=== PATIENT | male | born 1955 | race Caucasian/White ===

== ENCOUNTER 2025-02-25 04:12 | Observation (INO) | payer MEDICARE, SELFPAY ==
[2025-02-25] VITALS (7 sets, daily range): BP systolic 134–159; BP diastolic 50–88; PULSE 69–80; RESP 12–18; TEMP 36–36.7; O2SAT 95–100; BMI 32.2; BMI 32.1
--- NOTE | ~2025-02-25 | CT_ITS ---
CLINICAL HISTORY: Left facial cellulitis? Fluid collection CT maxillofacial with contrast Comparison: None Findings: There is left cheek subcutaneous edema, possible cellulitis. There are no focal masses or collections to suggest developing abscess. No acute fractures. No dislocations. Temporomandibular joints are intact. Paranasal sinuses and mastoid air cells clear. Orbital contents within normal limits. Visualized intracranial contents are within normal limits. No foreign bodies. IMPRESSION: Findings of possible left cheek cellulitis. Clinical follow-up recommended. This document has been electronically signed by: Tristian Duong MD on 02/25/2025 07:19:58
--- NOTE | 2025-02-25 04:52 | ED_ITS ---
HPI - General Adult General Chief complaint: General Medical Stated complaint: swollen face Time Seen by Provider: 02/25/25 04:46 Source: patient Mode of arrival: ambulatory Limitations: no limitations History of Present Illness ED Provider: HPI narrative: Patient' comes here with swelling of the lips left cheek started an hour prior to arrival patient does take SHAILA inhibitor lisinopril denies any difficulty in breathing no prior allergic reaction no dental caries or gum swelling Related Data Home Medications ?Medication ?Instructions ?Recorded ?Confirmed aspirin 81 mg tablet,delayed 81 mg PO DAILY 04/03/23 04/03/23 release Previous Rx's ?Medication ?Instructions ?Recorded acetaminophen 325 mg tablet 975 mg (3 x 325 mg) PO Q8H #10 tabs 04/05/23 amlodipine 2.5 mg tablet 2.5 mg PO DAILY #30 tabs 04/05/23 atorvastatin 20 mg tablet 20 mg PO DAILY #30 tabs 04/05/23 docusate sodium 100 mg capsule 100 mg PO DAILY PRN Constipation 04/05/23 #30 caps losartan 50 mg tablet 50 mg PO DAILY #30 tabs 04/05/23 prednisone 10 mg tablet See Taper PO DIRECTED #26 tabs 04/05/23 Allergies Allergy/AdvReac Type Severity Reaction Status Date / Time No Known Allergies Allergy Verified 02/25/25 04:20 Review of Systems 2 Review of Systems: Yes all other systems are reviewed and are negative [facility] Past Medical History Medical History Toe erythema Left ventricular aneurysm CVA (cerebral vascular accident) Tumor High cholesterol HTN (hypertension) Social History Social History Household Members: Family Housing: Unknown / Unable to assess Do you presently have visiting nurse or other home services: No (unknown) Alcohol intake: current Alcohol intake frequency: holidays/special occasions only Alcohol type: hard liquor Patient Tobacco Use Status: Current someday Tobacco user Tobacco use type: Cigar Smoked in Last 30 Days: No Use of substances other than those prescribed or required for medical reasons: No Advance Directives: No Advance Directives Information Provided: Yes Do you have a plan to hurt others: No Plan service: No Current occupational status: retired Physical Exam ED Vital Signs: Vital Signs - 24 hr 02/25/25 04:16 02/25/25 05:02 Temperature 96.8 F Pulse Rate 74 69 Respiratory Rate 18 18 Blood Pressure 159/88 H 148/69 H Pulse Oximetry 98 Oxygen Delivery Method Room Air BMI result Body Mass Index 32.2 Appearance: Alert. Oriented X3. No acute distress. Eyes: PERRLA, No Nystagmus ENT: Pharynx normal. Oral Mucosa moist swelling of the lower lip and upper lip on the left side with significant swelling of the cheek no gum swelling uvula slightly swollen no stridor Neck: Normal inspection. Neck supple. CVS: Normal heart rate and rhythm. Pulses normal. Respiratory: No respiratory distress. Equal air entry bilateral, no wheezing/rales/rhonchi Abdomen: Soft and nontender. Bowel sounds are present, no mass palpable, no CVA tenderness Skin: Skin warm and dry. Normal skin color. Normal skin turgor. Extremities: No lower extremity edema. No calf tenderness Neuro: Oriented X 3. No motor deficit. No sensory deficit.No cerebellar signs , cranial nerves II-XII intact Medications Administered Discontinued Medications Generic Name Dose Route Start Last Admin Trade Name Freq PRN Reason Stop Dose Admin Diphenhydramine HCl 50 mg 02/25/25 04:48 02/25/25 04:58 Diphenhydramine Hcl 50 Mg/Ml Vial IVPUSH 02/25/25 04:49 50 mg ONCE ONE Administration Iohexol 85 ml 02/25/25 06:47 02/25/25 06:49 Iohexol 350 Mg/Ml 100 Ml Infus..Btl IV 02/25/25 06:48 85 ml ONCE ONE Administration Methylprednisolone Sodium Succinate 125 mg 02/25/25 04:48 02/25/25 04:58 Methylprednisolone Sod Succ 125 Mg/2 Ml Vial IVPUSH 02/25/25 04:49 125 mg ONCE ONE Administration Medical Decision Making Medical Decision Making [facility] Narrative: Patient with angioedema of the face involving the lips and uvula without stridor no difficulty in breathing from SHAILA inhibitor lisinopril CT scan was done to rule out any fluid collection patient is signed out to Dr. Quezada for management/admission Patient has received IV steroid and Benadryl Differential Diagnosis Differential Diagnoses: The differential diagnosis associated with the presentation includes Angioedema/deep facial abscess/fluid collection Lab Data [facility] Lab Attestation statement: I reviewed the patient's lab results. 02/25/25 04:53 02/25/25 04:53 Labs: Lab Results 02/25/25 Range/Units 04:53 WBC 10.2 (4.8-10.8) X10*3/uL RBC 3.88 L (4.60-5.80) X10*6/uL Hgb 9.0 L D (14.0-18.0) g/dl Hct 29.1 L D (42.0-52.0) % MCV 75.0 L (80.0-98.0) fL MCH 23.2 L (27.0-33.0) pg MCHC 30.9 L (31.0-36.0) g/dl RDW 18.3 H (11.0-16.0) % Plt Count 177 D (160-400) X10*3/uL MPV 9.9 (9.4-12.4) fL Immature Gran % (Auto) 0.5 H (0.0-0.4) % Neut % (Auto) 65.5 (45-73) % Lymph % (Auto) 22.0 (20-40) % [place] % (Auto) 7.5 (2-11) % Eos % (Auto) 3.6 (0-4) % Baso % (Auto) 0.9 (0-2) % Lymph # (Auto) 2.3 (1.2-4.9) X10*3/uL [place] # (Auto) 0.8 (0.1-1.2) X10*3/uL Eos # (Auto) 0.4 (0.0-0.4) X10*3/uL Baso # (Auto) 0.1 (0.0-0.2) X10*3/uL Abs Immat Gran (auto) 0.05 H (0.00-0.03) X10*3/uL Absolute Neuts (auto) 6.7 (2.0-8.3) x10*3/uL Absolute Nucleated RBC 0.000 (0.0-0.012) X10*3/uL Nucleated RBC % (auto) 0.0 (0.0-0.2) /100WBC Sodium 136 (135-145) mmol/L Potassium 5.3 H (3.3-5.1) mmol/L Chloride 106 (96-108) mmol/L Carbon Dioxide 19 L (22-29) mmol/L Anion Gap 16 (12-20) BUN 31 H (9-16) mg/dL Creatinine 1.49 H (0.5-1.4) mg/dL Estim Creat Clear Calc 40.0 Estimated GFR 46 Random Glucose 101 (60-115) mg/dL Calcium 9.4 (8.4-10.2) mg/dL Total Bilirubin 0.3 (0.0-1.0) mg/dL AST 71 H (5-37) U/L ALT 25 (0-40) U/L Alkaline Phosphatase 99 (39-117) U/L Total Protein 8.5 H (6.5-8.0) g/dL Albumin 4.2 (3.5-5.0) g/dL Discharge Plan Discharge Clinical Impression: 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) Patient Disposition: Still a Patient Prescriptions: No Action aspirin 81 mg Tablet,Delayed Release (Dr/Ec) 81 mg PO DAILY atorvastatin 20 mg Tablet 20 mg PO DAILY Qty: 30 0RF docusate sodium 100 mg Capsule 100 mg PO DAILY PRN (Reason: Constipation) Qty: 30 0RF losartan 50 mg Tablet 50 mg PO DAILY Qty: 30 0RF Protocol: Hold for SBP< HOLD for SBP < : 90 acetaminophen 325 mg Tablet 975 mg PO Q8H Qty: 10 0RF amlodipine 2.5 mg Tablet 2.5 mg PO DAILY Qty: 30 0RF Protocol: Hold for SBP< HOLD for SBP < : 90 prednisone 10 mg tablet See Taper PO DIRECTED Qty: 26 0RF Taper: Prednisone 40 mg daily for 2 Days and 0 Hour 30 mg daily for 3 Days and 0 Hour 20 mg daily for 3 Days and 0 Hour 10 mg daily for 3 Days and 0 Hour Rx Instructions: see taper instructions Print Language: Maori
[2025-02-25 04:56] LABS: MANUAL DIFF FLAG NO
[2025-02-25 04:57] LABS: Basophils Absolute Auto 0.1 X10*3/uL (0.0-0.2); Basophils Percent Auto 0.9 % (0-2); Eosinophils Absolute Auto 0.4 X10*3/uL (0.0-0.4); Eosinophils Percent Auto 3.6 % (0-4); Hematocrit 29.1 % (42.0-52.0); Imm Gran Abs Auto 0.05 X10*3/uL (0.00-0.03); Imm Gran Pct Auto 0.5 % (0.0-0.4); Lymphocytes Absolute Auto 2.3 X10*3/uL (1.2-4.9); Mean Corpuscular HGB Conc 30.9 g/dl (31.0-36.0); Mean Corpuscular Hemoglobin 23.2 pg (27.0-33.0); Mean Platelet Volume 9.9 fL (9.4-12.4); Monocytes Absolute Auto 0.8 X10*3/uL (0.1-1.2); Monocytes Percent Auto 7.5 % (2-11); Neutrophils Absolute Auto 6.7 x10*3/uL (2.0-8.3); Neutrophils Percent Auto 65.5 % (45-73); Platelet Count 177 X10*3/uL (160-400); Red Blood Count 3.88 X10*6/uL (4.60-5.80); Red Cell Distribution Width 18.3 % (11.0-16.0); White Blood Count 10.2 X10*3/uL (4.8-10.8)
[2025-02-25] MEDS: methylPREDNISolone Sod Succ 125 MG/2 ML VIAL IVPUSH (04:58)
[2025-02-25] MEDS: diphenhydrAMINE HCL 50 MG/ML VIAL IVPUSH (04:58)
[2025-02-25 05:23] LABS: Alanine Aminotransferase 25 U/L (0-40); Albumin Level 4.2 g/dL (3.5-5.0); Alkaline Phosphatase 99 U/L (39-117); Anion Gap 16 (12-20); Aspartate Amino Transferase 71 U/L (5-37); Bilirubin Total 0.3 mg/dL (0.0-1.0); Blood Urea Nitrogen 31 mg/dL (9-16); Calcium 9.4 mg/dL (8.4-10.2); Carbon Dioxide 19 mmol/L (22-29); Chloride 106 mmol/L (96-108); Estimated Glomerular Filt Rate 46; Glucose Random 101 mg/dL (60-115); Potassium 5.3 mmol/L (3.3-5.1); Sodium 136 mmol/L (135-145); Total Protein 8.5 g/dL (6.5-8.0)
[2025-02-25] MEDS: iohexoL 350 MG/ML 100 ML INFUS..BTL 85 ML IV (06:49)
--- NOTE | 2025-02-25 08:00 | P.HPHOSP_ITS ---
History of Present Illness Date of Service: 02/25/25 Chief Complaint: facial swelling 69 year old man with hx of CAD presenting with swelling of lips, left cheek that started 1 hour prior to presenting to the ED. Patient was recently started on Lisinopril 02/16/25 at [facility] [place], he was admitted for near syncope and ortostasis. He denied any sob, nausea, vomting, diarrhea, chest pain. Face CT showing possible left cheek cellulitis however symptoms are more related to angioedema. Patient received steroid and benadryl in the ED. He will be placed on observation overnight. Review of Systems 2 Review of Systems: Denies any recent fever chills or decrease in appetite respiratory denies any shortness of breath or cough cardiovascular denied chest pain gastrointestinal denies any dysphagia abdominal pain nausea vomiting or diarrhea genitourinary denies any dysuria frequency or hematuria musculoskeletal denies any joint pain or swelling neuropsych denies any weakness or seizures all other systems reviewed are negative [facility] Medical History Toe erythema Left ventricular aneurysm CVA (cerebral vascular accident) Tumor High cholesterol HTN (hypertension) Social History Household Members: Family Housing: House Do you presently have visiting nurse or other home services: No Alcohol intake: current Alcohol intake frequency: holidays/special occasions only Alcohol type: hard liquor Patient Tobacco Use Status: Current someday Tobacco user Tobacco use type: Cigarette Smoked in Last 30 Days: No Use of substances other than those prescribed or required for medical reasons: No Currently Displaying Signs/Symptoms of Drug Intoxication Withdrawal: No Have you been hit, kicked, punched, or otherwise hurt by someone within the past year? If so, by whom?: No Do you feel safe in your current relationship?: No Current Relationship Is there a partner from a previous relationship who is making you feel unsafe now?: No Are you made to feel afraid or neglected: No Advance Directives: No Advance Directives Information Provided: Yes Do you have a plan to hurt others: No Plan Recently lost weight without trying: No How much weight loss: Not applicable Eating poorly because of decreased appetite: No Nutrition screen score: 0 Nutrition Risks: No Nutritional Risk Poor oral hygiene: No service: No Current occupational status: retired [employer] Allergies Allergy/AdvReac Type Severity Reaction Status Date / Time lisinopril Allergy Severe Angioedema Verified 02/25/25 12:07 Active Medications: Current Medications Acetaminophen (Acetaminophen 325 Mg Tablet) 650 mg PO Q6H PRN PRN Reason: Pain, Mild 1-3,fever,headache Calcium Carbonate (Calcium Carbonate 750 Mg Tab.Chew) 750 mg PO Q4H PRN PRN Reason: Heartburn Magnesium Hydroxide (Milk Of Magnesia 30 Ml Oral.Susp) 30 ml PO DAILY PRN PRN Reason: Constipation Melatonin (Melatonin 3 Mg Tablet) 6 mg PO BEDTIME PRN PRN Reason: Insomnia Sodium Chloride (0.9 % Sodium Chloride Flush 3 Ml Syringe) [facility] Medications ?Medication ?Instructions ?Recorded ?Confirmed ?Last Taken ?Type acetaminophen 650 mg 650 mg PO Q8H PRN Pain 02/25/25 02/25/25 Unknown History tablet,extended release amlodipine 5 mg tablet 5 mg PO DAILY 02/25/25 02/25/25 02/24/25 History atorvastatin 80 mg tablet 80 mg PO BEDTIME 02/25/25 02/25/25 02/24/25 History ferrous sulfate 325 mg (65 mg 325 mg PO Q OTHER DAY 02/25/25 02/25/25 02/23/25 History iron) tablet,delayed release lisinopril 20 mg tablet 20 mg PO DAILY 02/25/25 02/25/25 02/24/25 History metoprolol succinate 25 mg 25 mg PO DAILY 02/25/25 02/25/25 02/24/25 History tablet,extended release 24 hr spironolactone 25 mg tablet 25 mg PO DAILY 02/25/25 02/25/25 02/24/25 History Physical Exam 2 Vital Signs and Narrative: Vital Signs: Last Vital Signs Temp 96.8 F 02/25/25 04:16 Pulse 69 02/25/25 05:02 Resp 18 02/25/25 05:02 BP 148/69 H 02/25/25 05:02 Pulse Ox 98 02/25/25 05:02 O2 Del Method Room Air 02/25/25 05:02 BMI result Body Mass Index 32.2 Appearing in no acute distress head is normocephalic atraumatic eyes pupils are PERRLA sclera is anicteric mouth throat mucous membranes are intact and moist neck is supple no lymphadenopathy, no JVD noted lung sounds are clear to auscultation heart regular rate rhythm, clear S1, S2 positive bowel sounds, abdomen is soft, nontender neuro patient is alert x3, no focal deficits Results Labs 02/25/25 04:53 02/25/25 04:53 Labs: Laboratory Results - last 24 hr 02/25/25 04:53 MCV 75.0 L MCH 23.2 L MCHC 30.9 L RDW 18.3 H Plt Count 177 D MPV 9.9 Immature Gran % (Auto) 0.5 H Neut % (Auto) 65.5 Lymph % (Auto) 22.0 [place] % (Auto) 7.5 Eos % (Auto) 3.6 Baso % (Auto) 0.9 Lymph # (Auto) 2.3 [place] # (Auto) 0.8 Eos # (Auto) 0.4 Baso # (Auto) 0.1 Abs Immat Gran (auto) 0.05 H Absolute Neuts (auto) 6.7 Absolute Nucleated RBC 0.000 Nucleated RBC % (auto) 0.0 Anion Gap 16 Estim Creat Clear Calc 40.0 Estimated GFR 46 Random Glucose 101 Calcium 9.4 Total Bilirubin 0.3 AST 71 H ALT 25 Alkaline Phosphatase 99 Total Protein 8.5 H Albumin 4.2 Assessment and Plan (1) 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 (ROD- I): Status: Acute Plan 69 year old man admitted with angioedema to face likely secondary to Rod inhibitor Angioedema Secondary to Lisinopril Given steroid and benadryl in ED no respiratory compromise lisinopril stopped monitor overnight HTN continue amlodipine , spirololactone, CAD continue BB, statin Microcytic anemia HH low but no acute bleeding continue iron Check Iron studies DVT prophylaxis with SCD, early ambulation Full code Quality Stroke Does the patient have a stroke diagnosis?: No VTE Prior VTE?: No VTE Risk Level:: Medical - moderate - high VTE Device Contraindication: N/A - Device Ordered VTE Drug Contraindication: Treatment Not Indicated
--- NOTE | 2025-02-25 08:00 | PM.DS ---
DS: Providers Provider Date of Service: 02/25/25 Date of discharge: 02/25/25 Primary care physician: Unknown Physician Physical Exam Vital Signs: Vital Signs: Last Vital Signs Temp 96.8 F 02/25/25 04:16 Pulse 69 02/25/25 05:02 Resp 18 02/25/25 05:02 BP 148/69 H 02/25/25 05:02 Pulse Ox 98 02/25/25 05:02 O2 Del Method Room Air 02/25/25 05:02 BMI result Body Mass Index 32.2 DS: Data Data Completed and Pending Labs on day of discharge: Laboratory Results - last 24 hr 02/25/25 04:53 WBC 10.2 RBC 3.88 L Hgb 9.0 L D Hct 29.1 L D MCV 75.0 L MCH 23.2 L MCHC 30.9 L RDW 18.3 H Plt Count 177 D MPV 9.9 Immature Gran % (Auto) 0.5 H Neut % (Auto) 65.5 Lymph % (Auto) 22.0 [place] % (Auto) 7.5 Eos % (Auto) 3.6 Baso % (Auto) 0.9 Lymph # (Auto) 2.3 [place] # (Auto) 0.8 Eos # (Auto) 0.4 Baso # (Auto) 0.1 Abs Immat Gran (auto) 0.05 H Absolute Neuts (auto) 6.7 Absolute Nucleated RBC 0.000 Nucleated RBC % (auto) 0.0 Sodium 136 Potassium 5.3 H Chloride 106 Carbon Dioxide 19 L Anion Gap 16 BUN 31 H Creatinine 1.49 H Estim Creat Clear Calc 40.0 Estimated GFR 46 Random Glucose 101 Calcium 9.4 Total Bilirubin 0.3 AST 71 H ALT 25 Alkaline Phosphatase 99 Total Protein 8.5 H Albumin 4.2 Discharge Plan Discharge Clinical Impression: 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
--- NOTE | 2025-02-25 08:35 | PHA.MEDREC ---
Addendum entered by Bettie Flood RPh 02/25/25 09:48: MED REC REVIEWED BY [facility] Original Note: Pharmacy Consult ? Medication Reconciliation Pharmacy has completed the medication reconciliation. Spoke with patient to confirm. He brought in his rx bottles. He is supposed to take ferrous sulfate today. He is not taking baby aspirin but says he is supposed to .
[2025-02-25 12:43] LABS: Iron 89 mcg/dL (45-160); Percent Iron Saturation 19 % (15-50); Total Iron Binding Capacity 467 mcg/dL (228-428); Unsaturated Iron Binding 378 ug/dL
[2025-02-25] MEDS: 0.9 % Sodium Chloride Flush 3 ML SYRINGE IVFLUSH (19:00)
[2025-02-25] MEDS: Melatonin 3 MG TABLET 6 MG PO (20:00)
[2025-02-26] MEDS: 0.9 % Sodium Chloride Flush 3 ML SYRINGE IVFLUSH (03:27)
[2025-02-26 03:35] VITALS: BP 134/60; PULSE 67; RESP 17; TEMP 36.4; O2SAT 98
[2025-02-26 07:21] VITALS: BP 163/75; PULSE 69; RESP 18; TEMP 36.8; O2SAT 99
[2025-02-26 07:33] LABS: MANUAL DIFF FLAG NO
[2025-02-26 07:45] LABS: Basophils Percent Auto 0.2 % (0-2); Eosinophils Percent Auto 0.2 % (0-4); Hematocrit 27.4 % (42.0-52.0); Hemoglobin 8.6 g/dl (14.0-18.0); Imm Gran Abs Auto 0.07 X10*3/uL (0.00-0.03); Imm Gran Pct Auto 0.7 % (0.0-0.4); Lymphocytes Absolute Auto 1.2 X10*3/uL (1.2-4.9); Lymphocytes Percent Auto 11.2 % (20-40); Mean Corpuscular HGB Conc 31.4 g/dl (31.0-36.0); Mean Corpuscular Hemoglobin 23.4 pg (27.0-33.0); Mean Corpuscular Volume 74.7 fL (80.0-98.0); Mean Platelet Volume 9.9 fL (9.4-12.4); Monocytes Absolute Auto 0.7 X10*3/uL (0.1-1.2); Monocytes Percent Auto 6.9 % (2-11); Neutrophils Absolute Auto 8.5 x10*3/uL (2.0-8.3); Neutrophils Percent Auto 80.8 % (45-73); Platelet Count 294 X10*3/uL (160-400); Red Blood Count 3.67 X10*6/uL (4.60-5.80); Red Cell Distribution Width 18.3 % (11.0-16.0); White Blood Count 10.6 X10*3/uL (4.8-10.8)
[2025-02-26 07:57] LABS: Alanine Aminotransferase 18 U/L (0-40); Albumin Level 4.2 g/dL (3.5-5.0); Alkaline Phosphatase 91 U/L (39-117); Anion Gap 12 (12-20); Aspartate Amino Transferase 20 U/L (5-37); Bilirubin Total 0.4 mg/dL (0.0-1.0); Blood Urea Nitrogen 27 mg/dL (9-16); Calcium 9.3 mg/dL (8.4-10.2); Carbon Dioxide 21 mmol/L (22-29); Chloride 108 mmol/L (96-108); Creatinine Clr Calc Pharmacy 55.2; Estimated Glomerular Filt Rate > 60; Glucose Random 101 mg/dL (60-115); Potassium 4.3 mmol/L (3.3-5.1); Sodium 137 mmol/L (135-145); Total Protein 7.6 g/dL (6.5-8.0)
--- NOTE | 2025-02-26 08:19 | PM.DS ---
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 Patient was recently started on [place]op[place]/16/25 [place] [facility] [place] he was admitted for near syncope and ortostasis. He denied any sob, nausea, vomting, diarrhea, chest pain. Face CT showing possible left cheek cellulitis however symptoms are more related to angioedema. Patient received steroid and benadryl in the ED. He will be placed on observation overnight. 69-year-old man treated for SHAILA induced angioedema secondary to lisinopril. Given steroids and Benadryl in the ED, no respiratory compromise, lisinopril stopped the patient should not take SHAILA inhibitor medications specifically lisinopril. Swelling has dramatically decreased and we will continue to. Hypertension. Continue amlodipine and spironolactone Coronary artery disease. Continue beta-frandy and statin Microcytic anemia. Iron 89/TIBC 467. Continue iron supplementation Time Attestation Discharge Coordination Time (in mins): 40 Quality: Safe Use of Opioids Does Pt have an Active Cancer Diagnosis on the Problem List?: No Quality: Stroke Does the patient have a stroke diagnosis?: No Physical Exam Vital Signs: Vital Signs: Last Vital Signs Temp 98.3 F 02/26/25 07:21 Pulse 69 02/26/25 07:21 Resp 18 02/26/25 07:21 BP 163/75 H 02/26/25 07:21 Pulse Ox 99 02/26/25 07:21 O2 Del Method Room Air 02/26/25 07:21 BMI result Body Mass Index 32.1 Appearing in no acute distress head is normocephalic atraumatic eyes pupils are PERRLA sclera is anicteric mouth throat mucous membranes are intact and moist neck is supple no lymphadenopathy, no JVD noted lung sounds are clear to auscultation heart regular rate rhythm, clear S1, S2 positive bowel sounds, abdomen is soft, nontender neuro patient is alert x3, no focal deficits Mild facial swelling to right side of face DS: Data Data Completed and Pending Labs on day of discharge: Laboratory Results - last 24 hr 02/25/25 02/25/25 02/26/25 04:53 08:37 06:02 WBC 10.6 RBC 3.67 L Hgb 8.6 L Hct 27.4 L MCV 74.7 L MCH 23.4 L MCHC 31.4 RDW 18.3 H Plt Count 294 D MPV 9.9 Immature Gran % (Auto) 0.7 H Neut % (Auto) 80.8 H Lymph % (Auto) 11.2 L [place] % (Auto) 6.9 Eos % (Auto) 0.2 Baso % (Auto) 0.2 Lymph # (Auto) 1.2 [place] # (Auto) 0.7 Eos # (Auto) 0.0 Baso # (Auto) 0.0 Abs Immat Gran (auto) 0.07 H Absolute Neuts (auto) 8.5 H Absolute Nucleated RBC 0.000 Nucleated RBC % (auto) 0.0 Sodium 137 Potassium 4.3 Chloride 108 Carbon Dioxide 21 L Anion Gap 12 BUN 27 H Creatinine 1.08 Estim Creat Clear Calc 55.2 Estimated GFR > 60 Random Glucose 101 Calcium 9.3 Iron 89 TIBC 467 H % Saturation 19 Unsat Iron Binding 378 Total Bilirubin 0.4 AST 20 ALT 18 Alkaline Phosphatase 91 Total Protein 7.6 Albumin 4.2 Blood Type A Negative Antibody Screen NEGATIVE Discharge Plan Discharge Anticipated Discharge Date/Time: 02/26/25 08:17 Patient Disposition: Home, Self-Care Discharge Diagnosis: SHAILA induced angioedema Discharge Medications: Continued atorvastatin 80 mg tablet 80 mg PO BEDTIME spironolactone 25 mg tablet 25 mg PO DAILY metoprolol succinate 25 mg tablet extended release 24 hr 25 mg PO DAILY ferrous sulfate 325 mg (65 mg iron) tablet,delayed release (DR/EC) 325 mg PO Q OTHER DAY acetaminophen 650 mg Tablet Extended Release 650 mg PO Q8H PRN (Reason: Pain) amlodipine 5 mg tablet 5 mg PO DAILY Qty: 30 0RF Discontinued lisinopril 20 mg tablet 20 mg PO DAILY Discharge Orders: Discharge Order (Routine); Ordered 02/26/25 Ordered By: Terri Choi Diet: Advance to usual diet Activity on Discharge: As tolerated Stand Alone Forms: Patient Portal Discharge page Print Language: [place] Care Plan Goals: Do not take SHAILA inhibitor medications specifically lisinopril Swallowing we will continue to decrease however if you notice worsening swelling or tightness in the throat, return to the ER immediately Health Concerns: SHAILA induced angioedema Plan of Treatment: Follow-up with primary care provider as needed Take all medications as prescribed Assessment: See discharge summary
--- NOTE | 2025-02-26 08:40 | MHC.CM.PN ---
Pt. has been medically cleared for DC, he will call a family member to pick him up, plan is: home, self care. He has a new PCP, appt later this month at [facility], a practice, he does not know name of MD.
== END 2025-02-26 09:00 | disposition home or self-care (01) ==
LOC: HO.ED 07:40 → HO.IMC 10:26 → HO.EDOVER 02-28 08:28
PROVIDERS: Admitting Provider Nurse Practitioner Acute Care; Emergency Provider Internal Medicine; Visit Provider Nurse Practitioner Acute Care
DX: R55 Syncope and collapse (principal); T46.4X5A Adverse effect of angiotensin-converting-enzyme inhibitors, initial encounter; Y84.8 Other medical procedures as the cause of abnormal reaction of the patient, or of later complication, without mention of misadventure at the time of the procedure; Y92.9 Unspecified place or not applicable; I10 Essential (primary) hypertension; R22.0 Localized swelling, mass and lump, head; I25.10 Atherosclerotic heart disease of native coronary artery without angina pectoris; D50.9 Iron deficiency anemia, unspecified; Z86.73 Personal history of transient ischemic attack (TIA), and cerebral infarction without residual deficits
CPT/HCPCS: 36415; 70487; 80053; 83540; 85025; 86850; 86900; 86901; 96374; 96375; 99222; 99285; J1200; J2919; Q9967

== ENCOUNTER → 2025-02-25 06:33 | Outpatient (BNV) | payer MEDICARE, SELFPAY | PROVIDERS: Emergency Provider Internal Medicine; Visit Provider Specialist | DX: L03.211 Cellulitis of face (principal) | CPT/HCPCS: 70487 ==

== ENCOUNTER → 2025-02-25 08:14 | Outpatient (BNV) | payer MEDICARE, SELFPAY | PROVIDERS: Admitting Provider Nurse Practitioner Acute Care; Emergency Provider Internal Medicine; Visit Provider Nurse Practitioner Acute Care | DX: T78.3XXA Angioneurotic edema, initial encounter (principal); T46.4X5A Adverse effect of angiotensin-converting-enzyme inhibitors, initial encounter | CPT/HCPCS: 99223 ==

== ENCOUNTER 2025-07-02 19:34 | Inpatient (IN) | payer MEDICARE, SELFPAY ==
--- NOTE | 2025-07-02 | ECG_ITS ---
Test Reason : DIZZINESS Blood Pressure : */* mmHG Vent. Rate : 59 BPM Atrial Rate : 59 BPM P-R Int : 184 ms QRS Dur : 124 ms QT Int : 442 ms P-R-T Axes : 35 25 38 degrees QTcB Int : 437 ms Sinus bradycardia Possible Inferior infarct (cited on or before 17-Feb-2012) Abnormal ECG When compared with ECG of 17-Oct-2016 03:32, Nonspecific T wave abnormality, improved in Inferior leads T wave inversion no longer evident in Anterolateral leads Referred By: Generic ED Physician Electronically Signed By: VIKY DICKEY MD
--- NOTE | ~2025-07-02 | XR_ITS ---
EXAMINATION: XR CHEST 1 VIEW HISTORY: SOB at rest COMPARISON: Comparison is made with the prior examination dated 09/22/2020. FINDINGS: A single AP portable view of the chest performed at 11:34 PM is submitted. A left sided unipolar pacemaker is unchanged in position. The lungs are expanded and clear. There is no pleural effusion, pneumothorax, or pulmonary vascular congestion. The heart remains enlarged. The patient is status post median sternotomy. The bones are intact. XR/XR chest 1V IMPRESSION: Cardiomegaly. No acute cardiopulmonary abnormality. Electronically signed by: Anton Garcia MD 07/03/2025 06:57 AM EDT
--- NOTE | ~2025-07-02 | CT_ITS ---
EXAMINATION: CT ABDOMEN AND PELVIS WITH CONTRAST CLINICAL INFORMATION: Acute anemia. COMPARISON: None available. TECHNIQUE: Multidetector volumetric images were obtained from the superior aspect of the liver through the pubic symphysis following administration 85 mL of Omnipaque 350 intravenous contrast. Sagittal and coronal reformatted images were obtained on the technologist's workstation. Oral contrast: No. DLP: [address] examination was performed using dose optimization techniques as appropriate, variously including the following: *Automated exposure control *Adjustment of mA and/or kV according to patient size (this includes techniques or standardized protocols for targeted exams where dose is matched to indication/reason for exam; i.e. extremities or head) *Use of iterative reconstruction technique FINDINGS: LUNG BASES: There is bibasilar dependent atelectasis. Heart size is normal. Solitary pacer electrode in right ventricle. There are median sternotomy sutures from previous intervention no pleural or pericardial effusion seen. Suspect small hiatal hernia. In between the pericardium and the diaphragm is a hyperdense area measuring 199 Hounsfield units. Exact etiology is not known. LIVER, GALLBLADDER, AND BILIARY TREE: The liver is normal in size, shape, and attenuation. No focal hepatic lesion or biliary ductal dilatation is present. The gallbladder is unremarkable with no evidence of radiopaque gallstones, gallbladder wall thickening, or obvious pericholecystic inflammatory changes. PANCREAS: Unremarkable. SPLEEN: Unremarkable. ADRENAL GLANDS: Unremarkable. KIDNEYS AND URETERS: The kidneys are normal in size, shape, and attenuation. No hydronephrosis, hydroureter, or calculi seen. There is focal perinephric stranding posterior upper pole right kidney. BLADDER: There is mild anterior bladder wall thickening but no radiopaque calculi visualized. GASTROINTESTINAL TRACT: There is scattered stool and gas in the colon without distention. The small bowel loops are normal caliber. Appendix is normal caliber. The stomach is nondistended. ABDOMINAL WALL: Prominent right inguinal canal containing mesenteric fat is noted. There is a lipoma of left tensor fascia edgar muscle with LYMPH NODES: Normal. VASCULAR: Mild atherosclerotic changes of entire abdominal aorta is noted without aneurysm. PELVIC VISCERA: The prostate gland is mildly enlarged with central gland calcification mild extension into the basal bladder. OSSEOUS STRUCTURES: Moderate to advanced degeneration with subchondral cystic changes seen involving the right humeral head in the right acetabulum. CT/CT abdomen pelvis w IV con IMPRESSION: No acute intracranial process. There is hyperdense lesion in between the diaphragm and basal pericardium. Question calcified pericardial cyst, less likely exophytic gastroesophageal diverticulum. Likely small hiatal hernia. Mild prostate enlargement. Fleischner guidelines were followed. Electronically signed by: Aki Strickland MD 07/03/2025 07:25 AM EDT RP
[2025-07-02 19:42] VITALS: BP 154/88; PULSE 86; O2SAT 100
[2025-07-02 19:47] VITALS: BP 147/45; PULSE 66; RESP 16; TEMP 36.7; O2SAT 97; BMI 27.6
[2025-07-02 20:00] VITALS: BP 147/45; PULSE 63; RESP 16; TEMP 36.7; O2SAT 98
[2025-07-02 20:25] LABS: Imm Gran Abs Auto 0.02 X10*3/uL (0.00-0.03); Imm Gran Pct Auto 0.3 % (0.0-0.4); Lymphocytes Absolute Auto 1.4 X10*3/uL (1.2-4.9); MANUAL DIFF FLAG NO; Mean Corpuscular HGB Conc 27.0 g/dl (31.0-36.0); Mean Corpuscular Hemoglobin 16.0 pg (27.0-33.0); NRBC Abs Auto 0.000 X10*3/uL (0.0-0.012); NRBC Pct Auto 0.0 /100WBC (0.0-0.2); Platelet Count 221 X10*3/uL (160-400); Red Blood Count 3.00 X10*6/uL (4.60-5.80); White Blood Count 6.1 X10*3/uL (4.8-10.8)
--- NOTE | 2025-07-02 20:25 | PC.NURSE ---
at this time provider Dhruv Angelo at the bedside speaking w/ the pt, pt now adherent to receiving CT scan
[2025-07-02 20:28] LABS: Mean Corpuscular Volume 59.3 fL (80.0-98.0)
[2025-07-02 20:31] LABS: Hematocrit 17.8 % (42.0-52.0); Hemoglobin 4.8 g/dl (14.0-18.0)
[2025-07-02 20:39] LABS: Alanine Aminotransferase 8 U/L (0-40); Albumin Level 4.0 g/dL (3.5-5.0); Alkaline Phosphatase 73 U/L (39-117); Anion Gap 14 (12-20); Aspartate Amino Transferase 22 U/L (5-37); Blood Urea Nitrogen 18 mg/dL (9-16); Calcium 8.3 mg/dL (8.4-10.2); Carbon Dioxide 25 mmol/L (22-29); Chloride 107 mmol/L (96-108); Creatinine Clr Calc Pharmacy 56.0; Estimated Glomerular Filt Rate > 60; Magnesium 2.0 mg/dL (1.6-2.6); Potassium 3.9 mmol/L (3.3-5.1); Sodium 142 mmol/L (135-145); Total Protein 6.7 g/dL (6.5-8.0)
[2025-07-02 20:43] LABS: INTERNATIONAL NORM RATIO 1.0 (0.9-1.1); Prothrombin Time 10.9 SEC (10.9-12.4)
[2025-07-02 20:46] LABS: Troponin-I High Sensitivity 19.6 ng/L (<3.5-35.0)
--- NOTE | 2025-07-02 21:07 | ED.GENADULT ---
HPI - General Adult General Chief complaint: Dizziness Stated complaint: dizzy, hip pain, unable to ambulate Time Seen by Provider: 07/02/25 20:30 Source: patient and EMS Mode of arrival: EMS Limitations: no limitations History of Present Illness ED Provider: Clemente KHAN HPI narrative: The patient is a 70-year-old male with a history of CAD, AICD, hypertension, hyperlipidemia, and CHF presenting to the ED for evaluation of 2-3 months of worsening dizziness, with associated bilateral lower extremity weakness and right hip pain. Patient reports he was told approximately 10 years ago that he needed a right hip replacement but did not follow through with the surgery. The patient reports he has been contributing both his hip pain and weakness symptoms to his arthritic hip. The patient reports today however his weakness became markedly more severe, he was unable to get up from a chair without feeling short of breath and dizzy, patient has been unable to walk greater than 25-30 feet without needing to sit down and rest. The patient denies associated fever/chills, nausea, vomiting, chest pain, shortness of breath, abdominal pain, recent sick contacts, recent fall or other trauma, headache, or focal neurological deficit. The patient reports he is anticoagulated secondary to his previous open heart surgery however chart review does not show any active anticoagulation prescriptions. The patient denies any sources of bleeding. Related Data Home Medications ?Medication ?Instructions ?Recorded ?Confirmed acetaminophen 650 mg 650 mg PO Q8H PRN Pain 02/25/25 02/25/25 tablet,extended release atorvastatin 80 mg tablet 80 mg PO BEDTIME 02/25/25 02/25/25 ferrous sulfate 325 mg (65 mg 325 mg PO Q OTHER DAY 02/25/25 02/25/25 iron) tablet,delayed release metoprolol succinate 25 mg 25 mg PO DAILY 02/25/25 02/25/25 tablet,extended release 24 hr spironolactone 25 mg tablet 25 mg PO DAILY 02/25/25 02/25/25 Previous Rx's ?Medication ?Instructions ?Recorded amlodipine 5 mg tablet 5 mg PO DAILY #30 tabs 02/26/25 Allergies Allergy/AdvReac Type Severity Reaction Status Date / Time lisinopril Allergy Severe Angioedema Verified 07/02/25 19:53 Review of Systems Review of Systems: Yes all other systems are reviewed and are negative [facility] Past Medical History Medical History Toe erythema Left ventricular aneurysm CVA (cerebral vascular accident) Tumor High cholesterol HTN (hypertension) Social History Social History Household Members: Family Housing: House Do you presently have visiting nurse or other home services: No Alcohol intake: current Alcohol intake frequency: 3 or more drinks per day Alcohol type: hard liquor Patient Tobacco Use Status: Current someday Tobacco user Tobacco use type: Cigarette Smoked in Last 30 Days: Yes Use of substances other than those prescribed or required for medical reasons: No Advance Directives: No Advance Directives Information Provided: No service: No Current occupational status: retired Physical Exam ED Vital Signs: Vital Signs - 24 hr 07/02/25 19:47 07/02/25 20:00 07/02/25 22:00 Temperature 98.1 F 98.1 F Pulse Rate 66 63 69 Respiratory Rate 16 16 16 Blood Pressure 147/45 H 147/45 H 165/66 H Pulse Oximetry 97 98 98 Oxygen Delivery Method Room Air Room Air Room Air 07/02/25 22:28 Temperature 98.0 F Pulse Rate 65 Respiratory Rate 16 Blood Pressure 149/68 H Pulse Oximetry Oxygen Delivery Method BMI result Body Mass Index 27.6 CONSTITUTIONAL: The patient appears non-toxic, well nourished and in no acute distress. Vital signs as documented. HEAD: Atraumatic, normocephalic. EYES: EOMs grossly intact, pupils equal, conjunctiva clear, no exudate. ENT: Nares patent, no discharge. Airway patent, no audible stridor, visible mucosa is pink and moist without noted lesions. NECK: Trachea is midline, no obvious masses or gross abnormalities. CHEST: Symmetric movement, AICD in place, otherwise normal appearance. LUNGS: LS present and CTAB, no w/r/r. Non-labored work of breathing. CARDIAC: Regular Rhythm, S1/S2 appreciated, no murmurs, rubs or gallops. ABDOMEN: Abdomen soft and non-tender x4 quadrants, no palpable masses or organomegaly. : Deferred. EXTREMITIES: Normal tone, moves all extremities spontaneously without reported pain. No obvious acute injury or deformity noted. NEURO: Alert and oriented x3, CN II-XII appear grossly intact. Cerebellar Functioning grossly intact. No obvious sensory or motor deficits. Speech clear and appropriate. PSYCH: normal affect, appropriate eye contact, fluid speech, with appropriate response to questioning. No reported suicidality or homicidality. SKIN: Warm, dry, color appropriate, normal turgor. No rashes noted. Medications Administered Discontinued Medications Generic Name Dose Route Start Last Admin Trade Name Srinathq PRN Reason Stop Dose Admin Sodium Chloride 1,000 mls @ 999 mls/hr 07/02/25 20:45 07/02/25 21:59 Ns IV 07/02/25 21:45 Infused .Q1H1M EMILIE Infusion Medical Decision Making Medical Decision Making [facility] Narrative: 9:21 PM 07/02/2025 (Dhruv KHAN): The patient is a 70-year-old male presenting to the ED reporting severe fatigue, dizziness upon standing, and exertional dyspnea/weakness which has been occurring over the past 2-3 months but is increased today to the point he can not stand without feeling severely dizzy. The patient denies other associated symptoms. Patient's exam is unremarkable, abdomen is benign, nontender. Patient's laboratory evaluation however shows evidence of severe anemia with H and H of 4.8 and 17.8. The patient denies any sources of bleeding, denies hematochezia, melena, hematemesis, bleeding gums, or easy bruising. CARON shows no gross blood, occult stool is negative for blood. The remainder of the patient's laboratory evaluation is reassuring, no leukocytosis, electrolyte abnormality, or ALYSON. Patient's troponin is negative. EKG is nonischemic. The source of the patient's microcytic anemia is not entirely clear, we will add on folate, iron studies, and initiate transfusion of 2 units PRBCs. Due to severity of anemia patient will require admission for serial H&H and additional transfusions. Admission/Observation Consideration of admission/observation: Escalation of care including admission/observation considered Lab Data [facility] Lab Attestation statement: I reviewed the patient's lab results. 07/02/25 20:19 07/02/25 20:19 Labs: Lab Results 07/02/25 07/02/25 07/02/25 Range/Units 20:19 21:08 21:14 WBC 6.1 (4.8-10.8) X10*3/uL RBC 3.00 L (4.60-5.80) X10*6/uL Hgb 4.8 L* D (14.0-18.0) g/dl Hct 17.8 L* D (42.0-52.0) % MCV 59.3 L (80.0-98.0) fL MCH 16.0 L (27.0-33.0) pg MCHC 27.0 L (31.0-36.0) g/dl RDW 24.4 H (11.0-16.0) % Plt Count 221 (160-400) X10*3/uL MPV 8.9 L (9.4-12.4) fL Immature Gran % (Auto) 0.3 (0.0-0.4) % Neut % (Auto) 67.3 (45-73) % Lymph % (Auto) 22.7 (20-40) % Towns % (Auto) 6.6 (2-11) % Eos % (Auto) 2.1 (0-4) % Baso % (Auto) 1.0 (0-2) % Lymph # (Auto) 1.4 (1.2-4.9) X10*3/uL [place] # (Auto) 0.4 (0.1-1.2) X10*3/uL Eos # (Auto) 0.1 (0.0-0.4) X10*3/uL Baso # (Auto) 0.1 (0.0-0.2) X10*3/uL Abs Immat Gran (auto) 0.02 (0.00-0.03) X10*3/uL Absolute Neuts (auto) 4.1 (2.0-8.3) x10*3/uL Absolute Nucleated RBC 0.000 (0.0-0.012) X10*3/uL Nucleated RBC % (auto) 0.0 (0.0-0.2) /100WBC PT 10.9 (10.9-12.4) SEC INR 1.0 (0.9-1.1) Sodium 142 (135-145) mmol/L Potassium 3.9 (3.3-5.1) mmol/L Chloride 107 (96-108) mmol/L Carbon Dioxide 25 (22-29) mmol/L Anion Gap 14 (12-20) BUN 18 H (9-16) mg/dL Creatinine 1.09 (0.5-1.4) mg/dL Estim Creat Clear Calc 56.0 Estimated GFR > 60 Random Glucose 92 (60-115) mg/dL Calcium 8.3 L D (8.4-10.2) mg/dL Magnesium 2.0 (1.6-2.6) mg/dL Total Bilirubin 0.3 (0.0-1.0) mg/dL AST 22 (5-37) U/L ALT 8 (0-40) U/L Alkaline Phosphatase 73 (39-117) U/L Troponin I High Sens 19.6 (<3.5-35.0) ng/L Total Protein 6.7 (6.5-8.0) g/dL Albumin 4.0 (3.5-5.0) g/dL Stool Occult Blood NEGATIVE (NEGATIVE) Blood Type A Negative Antibody Screen NEGATIVE Crossmatch See Detail Independent Interpretation I performed an independent interpretation of an: EKG (EKG shows sinus bradycardia with no evidence of acute ischemia, no ST elevation, no ectopy. QTC 437. Compared to previous in 2016 T-wave inversions are no longer present in the anterolateral leads. ) Discharge Plan Discharge Clinical Impression: Anemia Qualifiers: Anemia type: unspecified type Qualified Code(s): D64.9 - Anemia, unspecified Patient Disposition: Admitted As Inpatient Print Language: Azeri
[2025-07-02 21:20] LABS: OBS Int Ctl Valid YES; OBS1 NEGATIVE (NEGATIVE)
[2025-07-02 22:00] VITALS: BP 165/66; PULSE 69; RESP 16; O2SAT 98
[2025-07-02 22:28] VITALS: BP 149/68; PULSE 65; RESP 16; TEMP 36.7
--- NOTE | 2025-07-02 22:31 | PC.NURSE ---
this RN began blood transfusion at this time
[2025-07-02 22:46] VITALS: BP 151/66; PULSE 61; RESP 18; TEMP 36.9
--- NOTE | 2025-07-02 22:46 | PC.NURSE ---
at this time blood transfused over 15 min, pt VSS, pt denies any chest pain/SOB/back pain
--- NOTE | 2025-07-02 22:59 | PM.IMHP ---
History of Present Illness Date of Service: 07/02/25 Attending physician on admission: Mitch Palencia Chief Complaint: weakness Pt is a 70 yo male with PMH CAD, HTN, HLD, alcohol use disorder, tobacco dependence, CVA (2019), aortic aneurysmal repair 2014 no dissection, HFrEF 45-50 % [address] (pt denies hx of cardiac arrest, [place]), mitral valve regurgitation, gout with no recent flares presents to ED with complaint of worsening dizziness and weakness, especially with ambulation to his mailbox over the last 6-7 months. Pt has not had any falls or injury. Pt currently lives with his [id number], drives and is retired. Due to the cost of copays, pt has had no Primary care or cardiology care since 2015 when his defibrilator was placed. Pt denies that the device has ever fired. Pt was not aware that he has heart failure but does know that he has a leaky valve. Unclear how pt is maintaining home prescriptions with no PCP. Attempted to clarify some information with pt's niece but there was answer at this late hour. Work up in the ED identified that pt was acutely and critically anemic with H/H 4.8/17.8. First stool for occult was negative. Pt denies any dark or tarry stool at home. Conjunctiva pale white B. No cyanosis or hypoxia on exam. Pt denies hx of GIB and only takes ASA 81 mgs daily. Pt denies being on blood thinners or use of NSAIDS regularly. [employer] lists iron as a daily medication. Pt has hx of colonoscopy over 10 years ago and was told he had 2 polyps removed and was never told if they were cancerous. Pt denies epistaxis, oral/dental bleeding, bleeding from the rectum or urethra. Pt denies any unusual bruising. Pt also not having chest pain but has noticed increasing SOB at rest and while sleeping on left side. Pt does not use home O2, nebulizers, or inhalers. Troponin negative and ECG NSR with no ischemic changes. Pt drinks 5-6 marilia nips per week but stated he drank 2 prior to coming in to the ED tonight. Pt denies hx of withdrawal or seizures related to withdraw. Pt also denies any hx of liver issues related to alcohol use. LFTs currently WNL. Pt also smokes one pack of cigarettes per week and denies need for NRT. Incidentally, as pt reports going out fishing at times at [facility], pt found a tick in his belly button in the past month. Pt denies having a bulls eye rash. Pt has no PCP and did not seek recommendations to include tick borne testing with obvious exposure. Review of Systems Review of Systems: Pt reports progressive weakness and dizziness over the last few months that recently got to the point that pt could not walk. Pt denies CP, ABD pain, blood in stool. Pt has not had any N/V but appetite has decreased overall. Yes all other systems are reviewed and are negative [facility] Medical History (Updated 07/02/25 @ 23:58 by LETICIA Mendiola) Mitral valve regurgitation Tobacco dependence Alcohol use disorder Gout Cardiac defibrillator in place Chronic systolic CHF (congestive heart failure) Toe erythema Left ventricular aneurysm CVA (cerebral vascular accident) Tumor High cholesterol HTN (hypertension) Cognitive capacity: A/O X3 Functional capacity: uses cane/walker Social History (Updated 07/02/25 @ 23:59 by LETICIA Mendiola) Household Members: Family Housing: House Do you presently have visiting nurse or other home services: No Alcohol intake: current Alcohol intake frequency: 3 or more drinks per day Alcohol type: hard liquor Comment: 5-6 marilia nips per week, may be underestimated Patient Tobacco Use Status: Current someday Tobacco user Tobacco use type: Cigarette Cigarettes Per Day: 5 service: No Current occupational status: retired Ebola Risk: Travel/Contact With Anyone From Affected Area/s: No Has Patient Experienced Ebola Symptoms: No Meds Allergies Allergy/AdvReac Type Severity Reaction Status Date / Time lisinopril Allergy Severe Angioedema Verified 07/02/25 19:53 Active Medications: Current Medications Acetaminophen (Acetaminophen 325 Mg Tablet) 650 mg PO Q6H PRN PRN Reason: Pain, Mild 1-3,fever,headache Albuterol/Ipratropium (Albuterol/Iprat 2.5/0.5mg 3 Ml Ampul.Neb) 3 ml INHALE Q4H PRN PRN Reason: Shortness of Breath/Wheezing Calcium Carbonate (Calcium Carbonate 750 Mg Tab.Chew) 750 mg PO Q4H PRN PRN Reason: Heartburn Magnesium Hydroxide (Milk Of Magnesia 30 Ml Oral.Susp) 30 ml PO DAILY PRN PRN Reason: Constipation Melatonin (Melatonin 3 Mg Tablet) 6 mg PO BEDTIME PRN PRN Reason: Insomnia Ondansetron HCl (Ondansetron Hcl 4 Mg/2 Ml Vial) 4 mg IVPUSH Q8H PRN PRN Reason: Nausea and Vomiting Pantoprazole Sodium (Pantoprazole Sodium 40 Mg/10 Ml Vial) 40 mg IVPUSH BID@0630,1630 [facility] Polyethylene Glycol (Polyethylene Glycol 3350 17 Gm Powd.Pack) 17 gm PO DAILY PRN PRN Reason: Constipation Sodium Chloride (0.9 % Sodium Chloride Flush 3 Ml Syringe) 3 ml IVFLUSH QSHIFT [facility] Home Medications ?Medication ?Instructions ?Recorded ?Confirmed ?Last Taken ?Type acetaminophen 650 mg 650 mg PO Q8H PRN Pain 02/25/25 02/25/25 Unknown History tablet,extended release atorvastatin 80 mg tablet 80 mg PO BEDTIME 02/25/25 02/25/25 02/24/25 History ferrous sulfate 325 mg (65 mg 325 mg PO Q OTHER DAY 02/25/25 02/25/25 02/23/25 History iron) tablet,delayed release metoprolol succinate 25 mg 25 mg PO DAILY 02/25/25 02/25/25 02/24/25 History tablet,extended release 24 hr spironolactone 25 mg tablet 25 mg PO DAILY 02/25/25 02/25/25 02/24/25 History Physical Exam Vital Signs and Narrative: Vital Signs: Last Vital Signs Temp 98.4 F 07/02/25 22:46 Pulse 61 07/02/25 22:46 Resp 18 07/02/25 22:46 BP 151/66 H 07/02/25 22:46 Pulse Ox 98 07/02/25 22:00 O2 Del Method Room Air 07/02/25 22:00 BMI result Body Mass Index 27.6 Alert and orientated X3, able to provide some medical hx Neuro: CN II-X11 intact, no deficits, visual acuity intact EYES: PERRLA, EOM intact, conjunctiva pale B, sclera nonicteric ENT: hearing intact, no issues with swallowing, uvula midline, lips moist, nares patent no epistaxis, most teeth missing Cardiac: S1 S2 RRR, mild systolic murmur, no JVD, no edema in Lower ext Pulmonary: lungs diminshed B Abdominal: BS active in all 4 quadrants, no guarding, tenderness, rebounding, soft MSK: strength 3-4/5 upper and lower extremities : no CVA tenderness no bladder distension Extremities: no edema in lower extremities, PT and DP pulses palpable +2 Psych: mood stable, judgement and insight fair Skin: intact Results Labs 07/02/25 20:19 07/02/25 20:19 Labs: Laboratory Results - last 24 hr 07/02/25 07/02/25 07/02/25 20:19 21:08 21:14 MCV 59.3 L MCH 16.0 L MCHC 27.0 L RDW 24.4 H Plt Count 221 MPV 8.9 L Immature Gran % (Auto) 0.3 Neut % (Auto) 67.3 Lymph % (Auto) 22.7 [place] % (Auto) 6.6 Eos % (Auto) 2.1 Baso % (Auto) 1.0 Lymph # (Auto) 1.4 [place] # (Auto) 0.4 Eos # (Auto) 0.1 Baso # (Auto) 0.1 Abs Immat Gran (auto) 0.02 Absolute Neuts (auto) 4.1 Absolute Nucleated RBC 0.000 Nucleated RBC % (auto) 0.0 PT 10.9 INR 1.0 Anion Gap 14 Estim Creat Clear Calc 56.0 Estimated GFR > 60 Random Glucose 92 Calcium 8.3 L D Magnesium 2.0 Total Bilirubin 0.3 AST 22 ALT 8 Alkaline Phosphatase 73 Total Protein 6.7 Albumin 4.0 Stool Occult Blood NEGATIVE Blood Type A Negative Antibody Screen NEGATIVE Crossmatch See Detail Assessment and Plan (1) Acute anemia: Status: Acute Plan Pt is a 70 yo male with PMH CAD, HTN, HLD, alcohol use disorder, tobacco dependence, CVA (2019), aortic aneurysmal repair 2014 no dissection, HFrEF 45-50 % [address] (pt denies hx of cardiac arrest, [place]), mitral valve regurgitation, gout with no recent flares presents to ED with complaint of worsening dizziness and weakness, especially with ambulation to his mailbox over the last 6-7 months. Pt has not had any falls or injury. Pt currently lives with his [id number], drives and is retired. Due to the cost of copays, pt has had no Primary care or cardiology care since 2016 when his defibrilator was placed. Pt denies that the device has ever fired. Pt was not aware that he has heart failure but does know that he has a leaky valve. Unclear how pt is maintaining home prescriptions with no PCP. Attempted to clarify some information with pt's niece but there was answer at this late hour. Acute anemia 2 U PRBCs started in ED for H/H 4.8/17.8 GI consulted Hematology consulted Iron panel and B12 pending, pt normally on Ferrous Sulfate NPO Protonix IV BID Troponn 19.6, ECG negative for ischemic changes, POX 98 RA No lovenox ordered, pt denies use of NOACs, takes ASA daily 81 mgs, no NSAIDS Initial occult negative, ordering additional testing Checking Haptoglobin and LDH noting recent tick found on body, rule out hemolytic anemia INR WNL Alcohol use Disorder CIWA in place, no indication currently for phenobarbitol protocol Addictions consulted LFTs stable GI consulted CT abd with IV contrast ordered Thiamine and Folic Acid ordered HFrEF 45-50% 2019, AICD present, no cardiology care since placement of device 2015 (HX of MVR and Aortic Aneurismal repair without dissection) Device info: pulse generator: Visia AF MRI VR SureScan [id number] lead: [employer] Quattro Secure MR Model # [id number] ? 55 cm Cardiology consulted as pt has had no care since device was placed (pt can not afford copay) No hx of device firing per pt BNP pending CXR pending Troponin negative, ECG stable with no ischemic changes Continue BB, spironolactone once MED REC completed Daily weights, FR 1500 mls per day once NPO, measure I/Os HLD Continue statin once no longer NPO Cardiac Diet Tick exposure within last month Tick exposure panel ordered No evidence of heart block Will add telemetry WIll hold off star Case management consulted to help pt establish Primary care, understand insurance coverage and work with pt/family on need for medical oversight as pt has comorbidities that need regular monitoring. This fha underwriter did attempt to clarify information with pt's neice but there was no answer at this late hour. Plan above reviewed with attending Dr. Negrete. DVT prophylaxis: contraindicated due to acute anemia and need for transfusion MED REC PENDING FULL CODE Quality Stroke Does the patient have a stroke diagnosis?: No Reason for No Anti-thrombotic by Day Two: Contraindicated (possible GIB ) VTE Prior VTE?: No VTE Risk Level:: Medical - moderate - high VTE Device Contraindication: N/A - Device Ordered VTE Drug Contraindication: Treatment Not Indicated
[2025-07-02 23:51] LABS: Uric Acid 9.2 mg/dL (3.4-7.0)
[2025-07-03] VITALS (23 sets, daily range): BP systolic 140–183; BP diastolic 68–90; PULSE 55–75; RESP 12–24; TEMP 36.2–37.1; O2SAT 95–100; BMI 23.7
[2025-07-03 00:40] LABS: Iron 8 mcg/dL (45-160); Percent Iron Saturation 2 % (15-50); Total Iron Binding Capacity 410 mcg/dL (228-428); Unsaturated Iron Binding 402 ug/dL
[2025-07-03] MEDS: iohexoL 350 MG/ML 100 ML INFUS..BTL 85 ML IV (00:53)
[2025-07-03 01:33] LABS: Folate < 2.2 ng/mL (> or = 4.0); Vitamin B12 207 pg/mL (200-900)
--- NOTE | 2025-07-03 02:20 | PC.NURSE ---
2nd unit of blood began transfusion at this time
--- NOTE | 2025-07-03 02:34 | PC.NURSE ---
2nd unit of blood has transfused over 15 min, pt VSS, pt denies any CP/SOB/back pain, appears to be in no apparent distress at this time
[2025-07-03 05:17] LABS: MANUAL DIFF FLAG NO
[2025-07-03 05:18] LABS: Hematocrit 23.6 % (42.0-52.0); Imm Gran Abs Auto 0.03 X10*3/uL (0.00-0.03); Imm Gran Pct Auto 0.6 % (0.0-0.4); Lymphocytes Absolute Auto 1.2 X10*3/uL (1.2-4.9); Mean Corpuscular HGB Conc 29.2 g/dl (31.0-36.0); Mean Corpuscular Hemoglobin 18.9 pg (27.0-33.0); NRBC Abs Auto 0.020 X10*3/uL (0.0-0.012); NRBC Pct Auto 0.4 /100WBC (0.0-0.2); Platelet Count 191 X10*3/uL (160-400); Red Blood Count 3.66 X10*6/uL (4.60-5.80); White Blood Count 5.3 X10*3/uL (4.8-10.8)
[2025-07-03 05:23] LABS: Mean Corpuscular Volume 64.5 fL (80.0-98.0)
[2025-07-03 05:26] LABS: Hemoglobin 6.9 g/dl (14.0-18.0)
[2025-07-03 05:34] LABS: Anion Gap 15 (12-20); Blood Urea Nitrogen 14 mg/dL (9-16); Calcium 8.0 mg/dL (8.4-10.2); Carbon Dioxide 21 mmol/L (22-29); Chloride 109 mmol/L (96-108); Creatinine Clr Calc Pharmacy 65.0; Estimated Glomerular Filt Rate > 60; Potassium 4.1 mmol/L (3.3-5.1); Sodium 141 mmol/L (135-145)
--- NOTE | 2025-07-03 05:52 | PC.NURSE ---
2nd unit of blood transfused
--- NOTE | 2025-07-03 06:07 | PC.NURSE ---
pt medicated per MAR
--- NOTE | 2025-07-03 07:18 | PC.NURSE ---
Assumed care of patient. Pt is A+OX4, calm, cooperative. Pt denies CP or SOB. RR even and unlabored. Pt denies any pain at this time.
[2025-07-03] MEDS: 0.9 % Sodium Chloride Flush 3 ML SYRINGE IVFLUSH ×4 (07:20→21:00)
--- NOTE | 2025-07-03 07:23 | P.CNGI_ITS ---
History of Present Illness Data of Consult Service Date: 07/03/25 Requesting physician: Mitch Palencia Primary Care Provider: None Physician HPI Reason for consult: anemia 70 YM with CAD, HTN, HLD, alcohol use disorder, tobacco dependence, CVA (2019), aortic aneurysmal repair 2014 no dissection, HFrEF 45-50 % [address] (pt denies hx of cardiac arrest, HI), mitral valve regurgitation, gout with no recent flares seen [place] [facility] [place] with complaint of worsening dizziness and weakness, especially with ambulation to his mailbox over the last 6-7 months. Pt denies heartburn, dysphagia, recent change in bowel habits. Pt denies any dark or tarry stool at home. Patient notes diarrhea related to certain foods. Pt takes ASA 81 mgs daily. Pt denies being on blood thinners or use of NSAIDS regularly. He admits to weight loss from 175 lb to 138 lb over the past few months. Pt denies having any falls or injury. Patient admits to smoking 1 pack every 5 days and drinks alcohol 4 times a week. Pt drinks 5-6 marilia nips per week but stated he drank 2 prior to coming in to the ED tonight. Pt denies hx of withdrawal or seizures related to withdraw. Pt also denies any hx of liver issues related to alcohol use. LFTs currently WNL. Patient denies known family history of colon polyps or GI malignancy. His younger brother recently with leukemia Pt is retired, worked various jobs including working at the [employer] and currently lives with his [id number]. Due to the cost of copays, pt has had no Primary care or cardiology care since 2015 when his defibrilator was placed. Pt denies that the device has ever fired. Pt was not aware that he has heart failure but does know that he has a leaky valve. Labs showed microscopic, hypochromic anemic with elevated RDW (H/H 4.8/17.8). First stool for occult was negative. MED REC lists iron as a daily medication. Pt has a hx of colonoscopy in 2010 and 2 adenomatous polyps were removed. Pt denies epistaxis, oral/dental bleeding, bleeding from the rectum or urethra. Pt denies any unusual bruising. Pt also not having chest pain but has noticed increasing SOB at rest and while sleeping on left side. Pt does not use home O2, nebulizers, or inhalers. Troponin negative and ECG NSR with no ischemic changes. 07/03/[address] SCAN SHOWED: There is hyperdense lesion in between the diaphragm and basal pericardium. Question calcified pericardial cyst, less likely exophytic gastroesophageal diverticulum. Likely small hiatal hernia. Mild prostate enlargement. Review of Systems 2 Review of Systems: Yes all other systems are reviewed and are negative [facility] Past Medical History Medical History Mitral valve regurgitation Tobacco dependence Alcohol use disorder Gout Cardiac defibrillator in place Chronic systolic CHF (congestive heart failure) Toe erythema Left ventricular aneurysm CVA (cerebral vascular accident) Tumor High cholesterol HTN (hypertension) Social History Social History Household Members: Other Housing: House Do you presently have visiting nurse or other home services: No Alcohol intake: current Alcohol intake frequency: 3 or more drinks per day Alcohol type: hard liquor Comment: 5-6 marilia nips per week, may be underestimated Patient Tobacco Use Status: Current everyday Tobacco user Tobacco use type: Cigarette Second Hand Smoke Exposure: No service: No Current occupational status: retired Travel History Ebola Risk: Travel/Contact With Anyone From Affected Area/s: No Has Patient Experienced Ebola Symptoms: No Meds Allergies Allergy/AdvReac Type Severity Reaction Status Date / Time lisinopril Allergy Severe Angioedema Verified 07/02/25 19:53 Active Medications: Current Medications Acetaminophen (Acetaminophen 325 Mg Tablet) 650 mg PO Q6H PRN PRN Reason: Pain, Mild 1-3,fever,headache Albuterol/Ipratropium (Albuterol/Iprat 2.5/0.5mg 3 Ml Ampul.Neb) 3 ml INHALE Q4H PRN PRN Reason: Shortness of Breath/Wheezing Calcium Carbonate (Calcium Carbonate 750 Mg Tab.Chew) 750 mg PO Q4H PRN PRN Reason: Heartburn Thiamine HCl 100 mg/ Sodium (Chloride) 101 mls @ 202 mls/hr IV DAILY EMILIE Folic Acid 1 mg/ Sodium (Chloride) 50.2 mls @ 100.4 mls/hr IV DAILY EMILIE Magnesium Hydroxide (Milk Of Magnesia 30 Ml Oral.Susp) 30 ml PO DAILY PRN PRN Reason: Constipation Melatonin (Melatonin 3 Mg Tablet) 6 mg PO BEDTIME PRN PRN Reason: Insomnia Ondansetron HCl (Ondansetron Hcl 4 Mg/2 Ml Vial) 4 mg IVPUSH Q8H PRN PRN Reason: Nausea and Vomiting Pantoprazole Sodium (Pantoprazole Sodium 40 Mg/10 Ml Vial) 40 mg IVPUSH BID@0630,1630 [facility] Last Admin: 07/03/25 06:04 Dose: 40 mg Polyethylene Glycol (Polyethylene Glycol 3350 17 Gm Powd.Pack) 17 gm PO DAILY PRN PRN Reason: Constipation Sodium Chloride (0.9 % Sodium Chloride Flush 3 Ml Syringe) 3 ml IVFLUSH QSHIFT [facility] Last Admin: 07/03/25 07:20 Dose: 3 ml Home Medications ?Medication ?Instructions ?Recorded ?Confirmed ?Last Taken ?Type atorvastatin 80 mg tablet 80 mg PO BEDTIME 02/25/2502/24/25 History metoprolol succinate 25 mg 25 mg PO DAILY 02/25/2502/24/25 History tablet,extended release 24 hr Physical Exam 2 Exam: Exam: General: A&O x3, oriented to time place person and siutaion, comfortable, no pain Cardiac: S1, S2 auscultated with no S3/4, grade IV ejection systolic murmur at the mitral region. Well perfused. Respiratory: Normal breath sounds auscultated throughout all lung zones, without wheezing, rales. Normal rate. GI/ : No abdominal pain on palpation, no masses or distentions. MSK: Normal ambulation without pain at bony prominences or musculature Neurological: Normal neurological examination on overview, without obvious CN II-XII abnormalities. Vital Signs: Vital Signs: Last Vital Signs Temp 98.2 F 07/03/25 07:17 Pulse 60 07/03/25 07:17 Resp 17 07/03/25 07:17 BP 178/84 H 07/03/25 07:17 Pulse Ox 97 07/03/25 07:17 O2 Del Method Room Air 07/03/25 07:17 BMI result Body Mass Index 27.6 Const: General: no acute distress Nutritional Appearance: average body habitus Orientation/consciousness: patient oriented x3 Limitations: no limitations HEENT: Head: Yes normal to inspection Ears: hearing grossly normal bilaterally Eyes: Sclerae: sclerae normal Pupils: Equal, round and reactive pupils present Neck: Neck: Yes normal visual inspection Chest: Chest palpation & inspection: normal inspection of the chest Resp: Effort & Inspection: normal respiratory effort Auscultation: clear to auscultation bilaterally Cardio: Palpation: normal PMI Rate: regular rate Rhythm: regular rhythm Heart sounds: S1 normal heart sound present, S2 normal heart sound present and Murmur heart sound present (Grade 3/6 systolic murmur at LSB) GI: Palpation (GI): Soft to palpation, nontender and No hepatosplenomegaly present Auscultation: normal bowel sounds Rectal Exam - Male: Yes deferred Skin: General skin exam: no rashes or lesions noted Neuro: General: patient oriented x3, gait normal and moves all extremities Cranial nerves: Yes Equal, round and reactive pupils present Psych: Appearance: grossly normal Mental Status: mental status grossly normal Results Labs 07/03/25 04:39 07/03/25 04:39 Labs: Short CBC 07/02/25 07/03/25 Range/Units 20:19 04:39 WBC 6.1 5.3 (4.8-10.8) X10*3/uL Hgb 4.8 L* D 6.9 L* D (14.0-18.0) g/dl Hct 17.8 L* D 23.6 L D (42.0-52.0) % Plt Count 221 191 (160-400) X10*3/uL BMP 07/02/25 07/03/25 20:19 04:39 Sodium 142 141 Potassium 3.9 4.1 Chloride 107 109 H Carbon Dioxide 25 21 L BUN 18 H 14 Creatinine 1.09 0.94 Calcium 8.3 L D 8.0 L Liver Function 07/02/25 Range/Units 20:19 Total Bilirubin 0.3 (0.0-1.0) mg/dL AST 22 (5-37) U/L ALT 8 (0-40) U/L Alkaline Phosphatase 73 (39-117) U/L Albumin 4.0 (3.5-5.0) g/dL Assessment and Plan (1) Anemia: Qualifiers: Anemia type: unspecified type Qualified Code(s): D64.9 - Anemia, unspecified Status: Acute Plan 70 YM with CAD, HTN, HLD, alcohol use disorder, tobacco dependence, CVA (2019), aortic aneurysmal repair 2014 no dissection, HFrEF 45-50 % [address] (pt denies hx of cardiac arrest, HI), mitral valve regurgitation, gout with no recent flares seen [place] [facility] [place] with complaint of worsening dizziness and weakness, He admits to weight loss from 175 lb to 138 lb over the past few months. Patient admits to smoking 1 pack every 5 days and drinks alcohol 4 times a week. He denies problems with anesthesia in the past, snoring or sleep apnea. Labs showed microscopic, hypochromic anemic with elevated RDW (H/H 4.8/17.8). First stool for occult was negative. Iron-deficiency anemia possibly from UGI (erosive esophagitis, peptic ulcer disease, upper GI AVM) or LGI (colonic AVMs, large colon polyp or mass) source No overt bleeding and stool occult blood was negative RECOMMENDATIONS: 1. Agree with IV PPI and CIWA protocol 2. Monitor CBC daily and transfuse prn 3. Clear liquid diet and GoLYTELY prep today. 4. Patient is scheduled for an upper endoscopy and colonoscopy on 07/04/2025. Both procedures and potential complications including bleeding, perforation, reaction to anesthetic and aspiration were reviewed with the patient. Procedures Date of Service Date of Service: 07/03/25
--- NOTE | 2025-07-03 08:22 | PHA.MEDREC ---
Addendum entered by Amauri Hernandez [facility] 07/03/25 08:30: Reviewed, will let provider know. Original Note: Pharmacy Consult ? Medication Reconciliation Pharmacy has completed the medication reconciliation. Patient is a poor historian. He kept saying he doesn't remember what he takes. Called contact on file however voicemail was a different name then patients contact. Utilized claims to confirm med list. took off some medications off med rec due to being out of range. Amlodipine 5 mg, last filled 03/06/25 for 30 days, Ferrous Sulfate 325 mg , last filled 02/16/25 for 60 days, Lisinopril 20 mg, last filled 02/16/25 for 30 days and Spironplactone 25 mg, last filled 04/09/25 for 30 days.
--- NOTE | 2025-07-03 08:23 | P.CNHO_ITS ---
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 Patient has not seen a PCP in many years. Workup in the emergency room revealed hemoglobin of 4.8 with hematocrit of 17.8. In February 2025 his hemoglobin was 8.6 gram/dL, both consistent with iron- deficiency anemia. Patient denies any history of melena or hematochezia. No heartburn or reflux symptoms. He had a colonoscopy many years ago. He denies any family history of colon or gastric cancer. His brother of CML. He he has chronic smoker and drinks alcohol. He does not have any children. He does report weight loss but can not say how much. No other constitutional symptoms. Review of Systems - Constitutional Reports as per HPI, Reports fatigue, Reports lack of energy, Reports malaise, Reports poor appetite, Reports weakness, Reports weight loss - Eyes Denies blurry vision - Cardiovascular Denies chest pain with activity, Denies fainting - Respiratory Denies cough, Reports dyspnea - Gastrointestinal Reports no additional gastrointestinal complaints [facility] Medical History: Medical History (Last Updated 07/02/25 @ 23:58 by LORY Mendiola-MARA) Alcohol use disorder Cardiac defibrillator in place Chronic systolic CHF (congestive heart failure) CVA (cerebral vascular accident) Gout High cholesterol HTN (hypertension) Left ventricular aneurysm Mitral valve regurgitation Tobacco dependence Toe erythema Tumor Functional capacity: uses cane/walker Social History: Social History (Last Updated 07/02/25 @ 23:59 by LORY Mendiola-MARA) Living Situation History: Household Members: Family Housing: House Do you presently have visiting nurse or other home services: No Alcohol History Details: 1. How often do you have a drink containing alcohol?: e. 4 or more times a week 2. How many drinks containing alcohol do you have on a typical day when you are drinking?: a. 1 or 2 3. How often do you have six or more drinks on one occasion?: a. Never AUDIT-C Alcohol total score: 4 Tobacco History: Patient Tobacco Use Status: Current someday Tobacco Tobacco use type: Cigarette Cigarettes Per Day: 5 Smoked in Last 30 Days: Yes Substance Use History: Use of substances other than those prescribed or required for medical reasons : No Advance Directives: Advance Directives: No Advance Directives Information Provided: No Nutrition Assessment: Nutrition Risks: No Nutritional Risk Occupation Assessmet: service: No Current occupational status: retired - Travel History Ebola Risk: Travel/Contact With Anyone From Affected Area/s: No Has Patient Experienced Ebola Symptoms: No Home Medications and Allergies Current Medications: Current Medications Acetaminophen (Acetaminophen 325 Mg Tablet) 650 mg PO Q6H PRN PRN Reason: Pain, Mild 1-3,fever,headache Albuterol/Ipratropium (Albuterol/Iprat 2.5/0.5mg 3 Ml Ampul.Neb) 3 ml INHALE Q4H PRN PRN Reason: Shortness of Breath/Wheezing Calcium Carbonate (Calcium Carbonate 750 Mg Tab.Chew) 750 mg PO Q4H PRN PRN Reason: Heartburn Thiamine HCl 100 mg/ Sodium (Chloride) 101 mls @ 202 mls/hr IV DAILY EMILIE Folic Acid 1 mg/ Sodium (Chloride) 50.2 mls @ 100.4 mls/hr IV DAILY EMILIE Magnesium Hydroxide (Milk Of Magnesia 30 Ml Oral.Susp) 30 ml PO DAILY PRN PRN Reason: Constipation Melatonin (Melatonin 3 Mg Tablet) 6 mg PO BEDTIME PRN PRN Reason: Insomnia Ondansetron HCl (Ondansetron Hcl 4 Mg/2 Ml Vial) 4 mg IVPUSH Q8H PRN PRN Reason: Nausea and Vomiting Pantoprazole Sodium (Pantoprazole Sodium 40 Mg/10 Ml Vial) 40 mg IVPUSH BID@0630,16[facility] Last Admin: 07/03/25 06:04 Dose: 40 mg Polyethylene Glycol (Polyethylene Glycol 3350 17 Gm Powd.Pack) 17 gm PO DAILY PRN PRN Reason: Constipation Sodium Chloride (0.9 % Sodium Chloride Flush 3 Ml Syringe) 3 ml IVFLUSH QSHIFT [facility] Last Admin: 07/03/25 07:20 Dose: 3 ml Home Medications ?Medication ?Instructions ?Recorded ?Confirmed ?Type atorvastatin 80 mg tablet 80 mg PO BEDTIME 02/25/25 07/03/25 Histo ry metoprolol succinate 25 mg 25 mg PO DAILY 02/25/25 07/03/25 History tablet,extended release 24 hr Allergies Allergy/AdvReac Type Severity Reaction Status Date / Time lisinopril Allergy Severe Angioedema Verified 07/02/25 19:53 Physical Exam Vital signs: Vital Signs Temp 97.8 F 07/03/25 08:01 Pulse 61 07/03/25 08:01 Resp 15 07/03/25 08:01 BP 179/73 H 07/03/25 08:01 Pulse Ox 97 07/03/25 07:17 O2 Del Method Room Air 07/03/25 07:17 Intake & Output 07/02/25 07/03/25 07/03/25 18:59 06:59 18:59 Intake Total 1700 / 1700 0 / 0 Output Total 780 / 780 Balance 1700 / 1700 -780 / -780 Urine Output (Average ml/kg/hr) 0.89 Intake: Intake (Blood Product) Amount 700 / 700 0 / 0 Red Blood Cells (E0336) Unit 350 / 350 [id number] Red Blood Cells (E0336) Unit 0 / 0 [id number] Red Blood Cells (E0336) Unit 350 / 350 [id number] Intake, IV Amount 1000 / 1000 0.9 % Sodium Chloride 1,000 ml 1000 / 1000 @ 999 mls/hr IV .Q1H1M [facility] Rx#: [id number] Output: Output, Urine Amount 780 / 780 Other: Urine Urinal Urine Color Yellow Weight 73 kg Weight 73 kg - Constitutional Present: no acute distress - Routine HEENT Exam Head: Present: normal inspection Eye: Present: EOMI, conjunctivae pale - Routine Neck Exam Present: supple. Absent: lymphadenopathy - Routine Respiratory Exam Present: CTAB. Absent: accessory muscle use, wheezes - Routine Cardiovascular Exam Cardiovascular: Present: RRR, S2 - Routine Abdominal Exam Present: soft - Routine Extremities Exam Present: pulses intact - Routine Skin Exam Present: intact - Routine Neurological Exam Present: alert, oriented X3 Hem/Onc Consult Result - Labs CBC & Chem 7: 07/03/25 04:39 07/03/25 04:39 Labs: Short CBC 07/02/25 07/03/25 Range/Units 20:19 04:39 WBC 6.1 5.3 (4.8-10.8) X10*3/uL Hgb 4.8 L* D 6.9 L* D (14.0-18.0) g/dl Hct 17.8 L* D 23.6 L D (42.0-52.0) % Plt Count 221 191 (160-400) X10*3/uL BMP 07/02/25 07/03/25 20:19 04:39 Sodium 142 141 Potassium 3.9 4.1 Chloride 107 109 H Carbon Dioxide 25 21 L BUN 18 H 14 Creatinine 1.09 0.94 Calcium 8.3 L D 8.0 L Liver Function 07/02/25 Range/Units 20:19 Total Bilirubin 0.3 (0.0-1.0) mg/dL AST 22 (5-37) U/L ALT 8 (0-40) U/L Alkaline Phosphatase 73 (39-117) U/L Albumin 4.0 (3.5-5.0) g/dL Assessment and Plan Patient Active problem list reviewed?: Yes (1) Anemia Status: Acute Assessment and plan: 1. This is a 70-year-old male presenting with acute worsening of chronic anemia. He has had gradually progressive anemia at least since 03/05/2025 when his hemoglobin was 9 gram/dL. Previously in 2022, Hb was normal at 13.1 gram/dL. He has severe iron-deficiency along with folic acid and vitamin B12 deficiency. He is a chronic alcoholic. Although he does not give any acute symptoms of gastrointestinal blood loss and Hemoccult is negative, chronic occult GI bleeding is probable reason. CT abdomen/pelvis with contrast performed 07/03/2025 shows no acute process. There is no evidence of hemolysis, no renal or liver dysfunction. Agree with blood transfusion. Replete iron, folic acid and vitamin B12 by parenteral route. Switch to oral medications at the time of discharge. He can be started on oral iron supplementation once GI workup is completed. Please refer to Hematology upon discharge. Thank you for the consultation. - Time Spent With Patient Time Spent with Patient (in minutes): 20 Additional Coding: - Additional E/M codes Complex E/M visit Add On: CPT G2211
[2025-07-03] MEDS: Thiamine HCL 100 MG in 0.9 % Sodium Chloride 100 ML 202 MG IV (09:05)
[2025-07-03 09:18] LABS: Reticulocytes Absolute 0.005 X10*6/uL (0.026-0.095)
[2025-07-03 09:24] LABS: Ferritin 9 ng/mL (20-250)
--- NOTE | 2025-07-03 10:40 | PM.CNCAR ---
History of Present Illness History of Present Illness Date of Service: 07/03/25 Requesting physician: Travis Thao Consult reason: other (Cardiology evaluation) Chief complaint: severe anemia Narrative: I was consulted to see David in cardiology consultation today for prior cardiac history. Patient admitted with severe anemia of unclear etiology but with symptoms associated shortness of breath as well as dizziness and fatigue. Patient was noted to have hemoglobin in the 4.5 range. Patient has been given 2 units of packed RBCs with hemoglobin improvement to 6.9 and getting the 3rd unit packed RBC. Patient denies any black stools. Patient was on low-dose aspirin therapy due to his prior cardiac surgery. Cardiology consult was sought because of his prior cardiac history. He is currently does not have any significant cardiac symptoms. He has history of ascending aortic aneurysm repair in 2015, Medtronic defibrillator placement for unclear reasons. He is not sure I do not have his old records from [facility], mild cardiomyopathy by last echocardiogram here with LVEF of 45-50% with [id number] mitral regurgitation. He also has history of CAD, extent unknown. He has no history of actual heart failure. He was recently admitted with angioedema associated with lisinopril therapy which has since been discontinued. Currently at home only on metoprolol and atorvastatin therapy. His blood pressure is slightly elevated. He currently has no cardiac symptoms at rest with no symptoms of chest pain with severe anemia. No orthopnea, PND. No syncopal episodes. EKG shows normal sinus rhythm with possible inferior infarct without acute ST T wave changes. Troponin was 19.6. 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 Review of Systems Constitutional: Constitutional: Reports fatigue and Reports lethargy Eyes: Eyes: Reports no additional eye complaints Cardiovascular: Cardiovascular: Denies chest pain, Reports lightheadedness, Denies Loss of Consciousness, Denies palpitations, Reports dyspnea on exertion, Denies orthopnea and Denies paroxysmal nocturnal dyspnea Respiratory: Respiratory: Reports no additional respiratory complaints and Reports dyspnea on exertion Gastrointestinal: Gastrointestinal: Reports no additional gastrointestinal complaints Genitourinary: Genitourinary: Reports no additional male genitourinary complaints Musculoskeletal: Musculoskeletal: Reports no additional musculoskeletal complaints Neurologic: Reports system reviewed and no additional complaints, except as documented Endocrine: Endocrine: Reports fatigue and Denies palpitations PMFSH Past Medical History Medical History Mitral valve regurgitation Tobacco dependence Alcohol use disorder Gout Cardiac defibrillator in place Chronic systolic CHF (congestive heart failure) Toe erythema Left ventricular aneurysm CVA (cerebral vascular accident) Tumor High cholesterol HTN (hypertension) Social History Social History Household Members: Other Housing: House Do you presently have visiting nurse or other home services: No Alcohol intake: current Alcohol intake frequency: 3 or more drinks per day Alcohol type: hard liquor Comment: 5-6 marilia nips per week, may be underestimated Patient Tobacco Use Status: Current everyday Tobacco user Tobacco use type: Cigarette Second Hand Smoke Exposure: No service: No Current occupational status: retired Travel History Ebola Risk: Travel/Contact With Anyone From Affected Area/s: No Has Patient Experienced Ebola Symptoms: No Meds Allergies Allergy/AdvReac Type Severity Reaction Status Date / Time lisinopril Allergy Severe Angioedema Verified 07/02/25 19:53 Active Medications: Current Medications Acetaminophen (Acetaminophen 325 Mg Tablet) 650 mg PO Q6H PRN PRN Reason: Pain, Mild 1-3,fever,headache Albuterol/Ipratropium (Albuterol/Iprat 2.5/0.5mg 3 Ml Ampul.Neb) 3 ml INHALE Q4H PRN PRN Reason: Shortness of Breath/Wheezing Calcium Carbonate (Calcium Carbonate 750 Mg Tab.Chew) 750 mg PO Q4H PRN PRN Reason: Heartburn Cyanocobalamin (Cyanocobalamin (Vitamin B-12) 1,000 Mcg/Ml Vial) 1,000 mcg IM DAILY [facility]ILIE Stop: 07/06/25 09:01 Last Admin: 07/03/25 09:05 Dose: 1,000 mcg Thiamine HCl 100 mg/ Sodium (Chloride) 101 mls @ 202 mls/hr IV DAILY [facility]ILIE Last Infusion: 07/03/25 09:49 Dose: Infused Folic Acid 1 mg/ Sodium (Chloride) 50.2 mls @ 100.4 mls/hr IV DAILY EMILIE Last Admin: 07/03/25 10:31 Dose: 100.4 mls/hr Magnesium Hydroxide (Milk Of Magnesia 30 Ml Oral.Susp) 30 ml PO DAILY PRN PRN Reason: Constipation Melatonin (Melatonin 3 Mg Tablet) 6 mg PO BEDTIME PRN PRN Reason: Insomnia Ondansetron HCl (Ondansetron Hcl 4 Mg/2 Ml Vial) 4 mg IVPUSH Q8H PRN PRN Reason: Nausea and Vomiting Pantoprazole Sodium (Pantoprazole Sodium 40 Mg/10 Ml Vial) 40 mg IVPUSH BID@0630,1630 [facility] Last Admin: 07/03/25 06:04 Dose: 40 mg Polyethylene Glycol (Polyethylene Glycol 3350 17 Gm Powd.Pack) 17 gm PO DAILY PRN PRN Reason: Constipation Sodium Chloride (0.9 % Sodium Chloride Flush 3 Ml Syringe) 3 ml IVFLUSH QSHIFT [facility] Last Admin: 07/03/25 07:20 Dose: 3 ml Home Medications ?Medication ?Instructions ?Recorded ?Confirmed ?Last Taken ?Type atorvastatin 80 mg tablet 80 mg PO BEDTIME 02/25/25 07/03/25 02/24/25 History metoprolol succinate 25 mg 25 mg PO DAILY 02/25/25 07/03/25 02/24/25 History tablet,extended release 24 hr Physical Exam Vital Signs: Vital Signs: Last Vital Signs Temp 98.6 F 07/03/25 09:33 Pulse 60 07/03/25 09:33 Resp 18 07/03/25 09:33 BP 140/80 H 07/03/25 09:33 Pulse Ox 99 07/03/25 09:33 O2 Del Method Room Air 07/03/25 09:33 BMI result Body Mass Index 23.7 Const: General: cooperative, comfortable, no acute distress, alert and awake Nutritional Appearance: average body habitus Orientation/consciousness: patient oriented x3 HEENT: Head: Yes normocephalic and Yes atraumatic Neck: Neck: Yes trachea midline, Yes supple and Yes no JVD Resp: Effort & Inspection: normal respiratory effort Auscultation: no rales and wheezes Cardio: Jugular venous distension: no JVD Rate: regular rate Rhythm: regular rhythm Heart sounds: S1 normal heart sound present, S2 normal heart sound present, no click, no gallops, no murmurs and no rubs GI: Auscultation: normal bowel sounds Skin: General skin exam: no rashes or lesions noted Neuro: General: patient oriented x3 and no focal motor deficits Extrem: General: Yes no clubbing, cyanosis or edema Objective Labs and Meds 07/03/25 04:39 07/03/25 04:39 Lab results: Laboratory Results - last 24 hr 07/02/25 07/02/25 07/02/25 20:19 21:08 21:14 WBC 6.1 RBC 3.00 L Hgb 4.8 L* D Hct 17.8 L* D MCV 59.3 L MCH 16.0 L MCHC 27.0 L RDW 24.4 H Plt Count 221 MPV 8.9 L Immature Gran % (Auto) 0.3 Neut % (Auto) 67.3 Lymph % (Auto) 22.7 [place] % (Auto) 6.6 Eos % (Auto) 2.1 Baso % (Auto) 1.0 Lymph # (Auto) 1.4 [place] # (Auto) 0.4 Eos # (Auto) 0.1 Baso # (Auto) 0.1 Abs Immat Gran (auto) 0.02 Absolute Neuts (auto) 4.1 Absolute Nucleated RBC 0.000 Nucleated RBC % (auto) 0.0 Absolute Retic Percent Retic Immature Retic Fraction Retic Hgb Equivalent PT 10.9 INR 1.0 Sodium 142 Potassium 3.9 Chloride 107 Carbon Dioxide 25 Anion Gap 14 BUN 18 H Creatinine 1.09 Estim Creat Clear Calc 56.0 Estimated GFR > 60 Random Glucose 92 Haptoglobin Uric Acid 9.2 H Calcium 8.3 L D Magnesium 2.0 Iron 8 L TIBC 410 % Saturation 2 L Unsat Iron Binding 402 Ferritin Total Bilirubin 0.3 AST 22 ALT 8 Alkaline Phosphatase 73 Lactate Dehydrogenase 194 Troponin I High Sens 19.6 Total Protein 6.7 Albumin 4.0 Vitamin B12 Folate Stool Occult Blood NEGATIVE Blood Type A Negative Antibody Screen NEGATIVE Crossmatch See Detail 07/03/25 07/03/25 00:24 04:39 WBC 5.3 RBC 3.66 L D Hgb 6.9 L* D Hct 23.6 L D MCV 64.5 L D MCH 18.9 L MCHC 29.2 L RDW 27.2 H Plt Count 191 MPV 9.0 L Immature Gran % (Auto) 0.6 H Neut % (Auto) 62.2 Lymph % (Auto) 22.2 [place] % (Auto) 9.7 Eos % (Auto) 3.8 Baso % (Auto) 1.5 Lymph # (Auto) 1.2 [place] # (Auto) 0.5 Eos # (Auto) 0.2 Baso # (Auto) 0.1 Abs Immat Gran (auto) 0.03 Absolute Neuts (auto) 3.3 Absolute Nucleated RBC 0.020 H Nucleated RBC % (auto) 0.4 H Absolute Retic 0.005 L Percent Retic 0.7 Immature Retic Fraction 31.5 H Retic Hgb Equivalent 14.3 L PT INR Sodium 141 Potassium 4.1 Chloride 109 H Carbon Dioxide 21 L Anion Gap 15 BUN 14 Creatinine 0.94 Estim Creat Clear Calc 65.0 Estimated GFR > 60 Random Glucose 70 Haptoglobin 168 Uric Acid Calcium 8.0 L Magnesium Iron TIBC % Saturation Unsat Iron Binding Ferritin 9 L Total Bilirubin AST ALT Alkaline Phosphatase Lactate Dehydrogenase Troponin I High Sens Total Protein Albumin Vitamin B12 207 Folate < 2.2 L Stool Occult Blood Blood Type Antibody Screen Crossmatch Imaging Radiologist's impression: Impressions Chest X-Ray 07/02/25 22:34 IMPRESSION: Cardiomegaly. No acute cardiopulmonary abnormality. Electronically signed by: Anton Garcia MD 07/03/2025 06:57 AM EDT RP Abdomen/Pelvis CT 07/03/25 00:40 IMPRESSION: No acute intracranial process. There is hyperdense lesion in between the diaphragm and basal pericardium. Question calcified pericardial cyst, less likely exophytic gastroesophageal diverticulum. Likely small hiatal hernia. Mild prostate enlargement. Fleischner guidelines were followed. Electronically signed by: Aki Strickland MD 07/03/2025 07:25 AM EDT RP Assessment and Plan (1) Anemia: Qualifiers: Anemia type: unspecified type Qualified Code(s): D64.9 - Anemia, unspecified Status: Acute Patient main presentation was due to symptomatic anemia with severe anemia. Patient etiology most likely appears to be iron-deficiency anemia possibly related GI blood loss although he denies any GI blood loss symptoms. Continue transfusion to maintain hematocrit over 30. Consider GI consultation for upper and lower endoscopy. Aspirin can be withheld for now. (2) Cardiac defibrillator in place: Status: Acute ICD in place which has not been followed regularly. He has Medtronic ICD. This does not require inpatient evaluation as there was no clear symptoms related to it. Will need outpatient follow-up and check on his ICD. (3) CAD (coronary artery disease): Status: Acute Reported CAD and appears like he had an inferior MD based on the EKG. He is currently off aspirin therapy due to severe anemia and suspected GI blood loss. Continue high-intensity statin therapy. Blood pressure is elevated, see below. (4) Cardiomyopathy: Status: Acute Mild cardiomyopathy with [id number] mitral regurgitation without signs or symptoms of heart failure. At this point time I would suggest that this should be treated with neurohormonal modulation. Continue metoprolol for neurohormonal modulation. Can not take SHAILA inhibitors or Entresto therapy given his allergy to lisinopril. Consider adding spironolactone for neurohormonal modulation. At this point time there are no active cardiac issues and will sign of the case. If patient wishes to be followed as outpatient can set him up for outpatient follow-up. Thank you for allowing me to partake in his care Procedures Date of Service Date of Service: 07/03/25
--- NOTE | 2025-07-03 11:38 | HO.ADDICT_ITS ---
History of Present Illness Date of Service: 07/03/2025 Chief Complaint: severe anemia Reason for Consult: alcohol use Sources of Information: patient interviewed and chart reviewed HPI Narrative: Patient is a 70 year old male with medical history that includes CVA, CAD, defib in place, HTN. Presented to ED reporting weakness, dizziness and difficulty ambulating that has been worsening over the last several month. Found to be acutely anemic, requiring transfusion and medically admitted. While in ED patient reported drinking several days per week, therefore consult requested. Patient seen in room 354. He is awake, alert, pleasant and engaged in interview. He reports drinking 3-4 days per week at the most . She states he normally drinks 4 nips each time (marilia) He denies drinking daily. Denies any history of withdrawal or feeling unwell when he does not drink. Denies any history of treatment. It's not like that, I don't drink the heavy stuff . Chart review shows patient has been admitted to [facility] in the past and no mention of etoh withdrawal noted CIWA scores 0 since admission Patient denies n/v, loose stools, tremor, or restlessness Appearing overall comfortable VS WNL Medical Evaluation Reviewed: Yes Review of Systems Constitutional: Reports as per HPI and Reports weakness Reports weakness Diagnostics Vital Signs (24Hr): Vital Signs - 24 hr 07/02/25 19:47 07/02/25 20:00 07/02/25 22:00 Temperature 98.1 F 98.1 F Pulse Rate 66 63 69 Respiratory Rate 16 16 16 Blood Pressure 147/45 H 147/45 H 165/66 H Pulse Oximetry 97 98 98 Oxygen Delivery Method Room Air Room Air Room Air 07/02/25 22:28 07/02/25 22:46 07/03/25 00:00 Temperature 98.0 F 98.4 F 98.5 F Pulse Rate 65 61 66 Respiratory Rate 16 18 20 Blood Pressure 149/68 H 151/66 H 168/69 H Pulse Oximetry 96 Oxygen Delivery Method Room Air 07/03/25 02:16 07/03/25 02:20 07/03/25 02:35 Temperature 98.2 F 98.2 F 98.2 F Pulse Rate 65 57 70 Respiratory Rate 14 24 H 12 Blood Pressure 163/70 H 169/71 H 161/68 H Pulse Oximetry Oxygen Delivery Method 07/03/25 04:00 07/03/25 04:14 07/03/25 04:52 Temperature Pulse Rate 72 61 Respiratory Rate 19 18 Blood Pressure 161/78 H 183/77 H 174/83 H Pulse Oximetry 97 98 Oxygen Delivery Method Room Air Room Air 07/03/25 05:53 07/03/25 07:17 07/03/25 07:27 Temperature 98.8 F 98.2 F 98.2 F Pulse Rate 64 60 64 Respiratory Rate 15 17 16 Blood Pressure 175/76 H 178/84 H 181/76 H Pulse Oximetry 97 Oxygen Delivery Method Room Air 07/03/25 07:31 07/03/25 07:32 07/03/25 07:36 Temperature 98.2 F 98.2 F 98.2 F Pulse Rate 57 64 62 Respiratory Rate 16 16 16 Blood Pressure 181/76 H 181/76 H 181/76 H Pulse Oximetry Oxygen Delivery Method 07/03/25 07:51 07/03/25 08:01 07/03/25 09:33 Temperature 97.7 F 97.8 F 98.6 F Pulse Rate 75 61 60 Respiratory Rate 14 15 18 Blood Pressure 179/75 H 179/73 H 140/80 H Pulse Oximetry 99 Oxygen Delivery Method Room Air 07/03/25 11:00 07/03/25 11:30 Temperature 97.3 F 98.1 F Pulse Rate 60 72 Respiratory Rate 18 16 Blood Pressure 170/82 H 102/46 L Pulse Oximetry 98 Oxygen Delivery Method Room Air BMI result Body Mass Index 23.7 Labs 07/03/25 04:39 07/03/25 04:39 Labs: Laboratory Results - last 48 hr 07/02/25 07/02/25 07/02/25 20:19 21:08 21:14 WBC 6.1 RBC 3.00 L Hgb 4.8 L* D Hct 17.8 L* D MCV 59.3 L MCH 16.0 L MCHC 27.0 L RDW 24.4 H Plt Count 221 MPV 8.9 L Immature Gran % (Auto) 0.3 Neut % (Auto) 67.3 Lymph % (Auto) 22.7 [place] % (Auto) 6.6 Eos % (Auto) 2.1 Baso % (Auto) 1.0 Lymph # (Auto) 1.4 [place] # (Auto) 0.4 Eos # (Auto) 0.1 Baso # (Auto) 0.1 Abs Immat Gran (auto) 0.02 Absolute Neuts (auto) 4.1 Absolute Nucleated RBC 0.000 Nucleated RBC % (auto) 0.0 Absolute Retic Percent Retic Immature Retic Fraction Retic Hgb Equivalent PT 10.9 INR 1.0 Sodium 142 Potassium 3.9 Chloride 107 Carbon Dioxide 25 Anion Gap 14 BUN 18 H Creatinine 1.09 Estim Creat Clear Calc 56.0 Estimated GFR > 60 Random Glucose 92 Haptoglobin Uric Acid 9.2 H Calcium 8.3 L D Magnesium 2.0 Iron 8 L TIBC 410 % Saturation 2 L Unsat Iron Binding 402 Ferritin Total Bilirubin 0.3 AST 22 ALT 8 Alkaline Phosphatase 73 Lactate Dehydrogenase 194 Troponin I High Sens 19.6 Total Protein 6.7 Albumin 4.0 Vitamin B12 Folate Stool Occult Blood NEGATIVE Blood Type A Negative Antibody Screen NEGATIVE Crossmatch See Detail 07/03/25 07/03/25 00:24 04:39 WBC 5.3 RBC 3.66 L D Hgb 6.9 L* D Hct 23.6 L D MCV 64.5 L D MCH 18.9 L MCHC 29.2 L RDW 27.2 H Plt Count 191 MPV 9.0 L Immature Gran % (Auto) 0.6 H Neut % (Auto) 62.2 Lymph % (Auto) 22.2 [place] % (Auto) 9.7 Eos % (Auto) 3.8 Baso % (Auto) 1.5 Lymph # (Auto) 1.2 [place] # (Auto) 0.5 Eos # (Auto) 0.2 Baso # (Auto) 0.1 Abs Immat Gran (auto) 0.03 Absolute Neuts (auto) 3.3 Absolute Nucleated RBC 0.020 H Nucleated RBC % (auto) 0.4 H Absolute Retic 0.005 L Percent Retic 0.7 Immature Retic Fraction 31.5 H Retic Hgb Equivalent 14.3 L PT INR Sodium 141 Potassium 4.1 Chloride 109 H Carbon Dioxide 21 L Anion Gap 15 BUN 14 Creatinine 0.94 Estim Creat Clear Calc 65.0 Estimated GFR > 60 Random Glucose 70 Haptoglobin 168 Uric Acid Calcium 8.0 L Magnesium Iron TIBC % Saturation Unsat Iron Binding Ferritin 9 L Total Bilirubin AST ALT Alkaline Phosphatase Lactate Dehydrogenase Troponin I High Sens Total Protein Albumin Vitamin B12 207 Folate < 2.2 L Stool Occult Blood Blood Type Antibody Screen Crossmatch Imaging Radiology Impressions: ITS Impressions Chest X-Ray 07/02/25 22:34 IMPRESSION: Cardiomegaly. No acute cardiopulmonary abnormality. Electronically signed by: Anton Garcia MD 07/03/2025 06:57 AM EDT RP Abdomen/Pelvis CT 07/03/25 00:40 IMPRESSION: No acute intracranial process. There is hyperdense lesion in between the diaphragm and basal pericardium. Question calcified pericardial cyst, less likely exophytic gastroesophageal diverticulum. Likely small hiatal hernia. Mild prostate enlargement. Fleischner guidelines were followed. Electronically signed by: Aki Strickland MD 07/03/2025 07:25 AM EDT RP Mental Status Exam Mental Status Exam Level of Consciousness: Awake, Appropriate and Alert Patient Behavior: Appropriate and Talkative Affect Description: Calm Speech Pattern: Clear Hallucinations: None Thought Process: Intact Thought Content: positive for Intact Judgement: Good Medications Medications Current Medications Acetaminophen (Acetaminophen 325 Mg Tablet) 650 mg PO Q6H PRN PRN Reason: Pain, Mild 1-3,fever,headache Albuterol/Ipratropium (Albuterol/Iprat 2.5/0.5mg 3 Ml Ampul.Neb) 3 ml INHALE Q4H PRN PRN Reason: Shortness of Breath/Wheezing Calcium Carbonate (Calcium Carbonate 750 Mg Tab.Chew) 750 mg PO Q4H PRN PRN Reason: Heartburn Cyanocobalamin (Cyanocobalamin (Vitamin B-12) 1,000 Mcg/Ml Vial) 1,000 mcg IM DAILY [facility] Stop: 07/06/25 09:01 Last Admin: 07/03/25 09:05 Dose: 1,000 mcg Thiamine HCl 100 mg/ Sodium (Chloride) 101 mls @ 202 mls/hr IV DAILY [facility]ILIE Last Infusion: 07/03/25 09:49 Dose: Infused Folic Acid 1 mg/ Sodium (Chloride) 50.2 mls @ 100.4 mls/hr IV DAILY [facility] Last Infusion: 07/03/25 11:09 Dose: Infused Magnesium Hydroxide (Milk Of Magnesia 30 Ml Oral.Susp) 30 ml PO DAILY PRN PRN Reason: Constipation Melatonin (Melatonin 3 Mg Tablet) 6 mg PO BEDTIME PRN PRN Reason: Insomnia Ondansetron HCl (Ondansetron Hcl 4 Mg/2 Ml Vial) 4 mg IVPUSH Q8H PRN PRN Reason: Nausea and Vomiting Pantoprazole Sodium (Pantoprazole Sodium 40 Mg/10 Ml Vial) 40 mg IVPUSH BID@0630,1630 [facility] Last Admin: 07/03/25 06:04 Dose: 40 mg Polyethylene Glycol (Polyethylene Glycol 3350 17 Gm Powd.Pack) 17 gm PO DAILY PRN PRN Reason: Constipation Sodium Chloride (0.9 % Sodium Chloride Flush 3 Ml Syringe) 3 ml IVFLUSH QSHIFT [facility] Last Admin: 07/03/25 07:20 Dose: 3 ml Allergies Allergies Allergy/AdvReac Type Severity Reaction Status Date / Time lisinopril Allergy Severe Angioedema Verified 07/02/25 19:53 Assessment & Plan Assessment & Plan (1) Alcohol use disorder: Status: Acute Code(s): F10.90 - Alcohol use, unspecified, uncomplicated Assessment and Plan: * continue with CIWA--no withdrawal sx at this time, and historically has not exhibited withdrawal sx when hospitalized * minimizing alcohol use--does not feel it is an issue or impacting current health issues * hospital laboratory technician to follow up to discuss risk reduction and FAYE Total time managing care of this patient today __30__ minutes. [facility] Past Medical History Medical History Mitral valve regurgitation Tobacco dependence Alcohol use disorder Gout Cardiac defibrillator in place Chronic systolic CHF (congestive heart failure) Toe erythema Left ventricular aneurysm CVA (cerebral vascular accident) Tumor High cholesterol HTN (hypertension) Social History Social History Household Members: Other Housing: House Do you presently have visiting nurse or other home services: No Alcohol intake: current Alcohol intake frequency: 3 or more drinks per day Alcohol type: hard liquor Comment: 5-6 marilia nips per week, may be underestimated Patient Tobacco Use Status: Current everyday Tobacco user Tobacco use type: Cigarette Second Hand Smoke Exposure: No service: No Current occupational status: retired
--- NOTE | 2025-07-03 12:00 | CA_ITS ---
Transthoracic Echocardiogram Patient (Last, First, Middle): Tristian Lisa C Gender: Male Date of : 1955 Age: 70 Procedure Date: 07/03/2025 Procedure Type: Transthoracic Echocardiogram Location: S3E Height: 162.56 cm Weight: 72.58 kg BSA: 1.78 m2 Heart Rate: bpm BP: 179 / 73 mmHg Furnace Process Plant Operator: Referring MD: Travis Thao MD Boiler Testing Technician: Shay Fontanez MD Symptoms: Cardiac clearance-preop; anesthesia Study Quality: Adequate ECG Rhythm: Sinus Conclusions: - 1. Moderately dilated left ventricle with mild left ventricular hypertrophy with low normal LV ejection fraction 50-55% with underlying regional wall motion abnormality consistent with prior myocardial infarction with pseudonormal filling pattern 2. Severely dilated left atrium 3. At least moderate mitral regurgitation 4. Normal RV systolic pressure 5. Mildly dilated ascending aorta 6. No gross pericardial effusion Findings Left Ventricle Moderately increased left ventricular cavity size. There is mildly increased left ventricular wall thickness. The left ventricular systolic function is low normal. The visually estimated ejection fraction is between 50-55%. Spectral Doppler is indicative of a pseudonormal filling pattern. E/E prime ratio is between 8 and 15 consistent with indeterminate filling pressures. Wall Motion Rest Echo Findings The basal inferoseptal segment is hypokinetic. The inferolateral wall is akinetic. The basal inferior segment is aneurysmal. All other scored wall segments showed normal motion. Right Ventricle Mildly increased right ventricular cavity size. There is normal right ventricular systolic function. There is an ICD wire seen in the right ventricle. Atria The left atrium is severely dilated. The right atrium is mildly dilated. Aortic Valve Normal aortic valve structure and function. There is no aortic valve stenosis. There is no aortic valve regurgitation. Mitral Valve There is mild anterior and posterior mitral leaflet thickening. The posterior mitral leaflet has restricted mobility. There is moderate mitral valve regurgitation. There is no mitral valve stenosis. Pulmonic Valve The pulmonic valve is likely normal. Tricuspid Valve Likely normal tricuspid valve structure and function. There is mild tricuspid valve regurgitation. The right ventricular systolic pressure is normal. The right ventricular systolic pressure is 35 mmHg. Normal right atrial pressure. There is no evidence of pulmonary hypertension. Great Vessels The pulmonary artery was not well visualized. There is mild dilatation of the ascending aorta measuring 4.20 cm. Small plaque is seen in the sinuses of Valsalva. Venous The inferior vena cava is normal in size and collapses greater than 50% with inspiration. Pericardium/Pleural There is no evidence of pericardial effusion. Prior Study Comparison Changes noted compared to prior study dated: 10/17/2016. LV ejection fraction has improved Measurements 2D Linear Measurements IVSd: 1.27 0.6-0.9/0.6-1.0 cm LVIDd: 6.51 3.9-5.3/4.2-5.9 cm LVIDd Index: 3.66 2.4-3.2/2.2-3.1 cm/m2 LVIDs: 5.95 2.0-3.6 cm LVPWd: 1.26 0.7-1.1 cm Ao Root: 3.10 2.1-3.5 cm LA Diam: 4.50 2.7-3.8/3.0-4.0 cm LAIDs Index: 2.53 1.5-2.3 cm/m2 LV Mass: 481.38 67-162/88-224 g LV Mass Index: 270.44 43-95/49-115 g/m2 LVOT Diam: 2.20 3.0+(-)1.3 cm 2D Systolic Function EF 4C: 50.70 >55% EF 2C: 56.20 >55% EF BiP: 52.10 >55% Mitral Valve MV Pk E: 1.05 MV PK A: 0.96 MV Decel Time: 220.00 E/A: 1.10 E'Lateral: 12.30 E'Medial: 4.24 E/E' Med: 24.80 E/E' Lat: 8.50 PHT: 64.00 MVA PHT: 3.44 Decel Marquette: 4.79 MR Vol - PW Dopp: 80.64 MR VTI: 2.52 MR ERO: 32.00 MR Alias Luis: 0.39 MR RAD: 0.90 Aortic Valve AoV Pk Luis: 1.51 AoV Mn Luis: 0.97 AoV VTI: 0.36 AoV Pk Grad: 9.00 Aov Mn Grad: 4.00 TYRELL Cont.VTI: 2.45 LVOT LVOT Pk Luis: 1.04 LVOT Mn Luis: 0.57 LVOT VTI: 0.23 LVOT Pk Grad: 4.00 LVOT Mn Grad: 2.00 LVOT Diam: 2.20 LVOT Area: 3.80 Diastolic Function MV Pk E: 1.05 MV Pk A: 0.96 E/A: 1.10 E'Medial: 4.24 E/E' Med: 24.80 E' Laterial: 12.30 E/E' Lat: 8.50 Right Ventricle TAPSE (mm): 27.00 TVS' Luis: 11.00 Tricuspid Valve TR Pk Luis: 2.83 TR Pk Grad: 32.00 RA Press: 3.00 RVSP: 35.00 Great Vessels Aorta Ao Root-2D: 3.10 2.0-3.7 cm Ao Asc: 4.20 2.1-3.4 cm Ao Arch: 4.30 Pulmonary Valve PV Pk Luis: 1.07 Peak PV Grad: 5.00 Updated in Other Vendor System with Status of Final Shay Fontanez MD electronically signed on 07/03/2025 2:07:52 PM with status of Final
[2025-07-03] MEDS: Nicotine 14 MG PATCH.TD24 TRANSDERMA (13:25)
--- NOTE | 2025-07-03 13:58 | MHC.CM.PN ---
pt lives with ady he is independent pt seen by addiction counselor re his etoh abuse pt has a ride home when dcd dc plan home no services
--- NOTE | 2025-07-03 15:21 | HO.PM.IMPN ---
Subjective Subjective Date of Service: 07/03/25 Interval History: Evaluated today; feels well overall. The patient has no new complaints currently. Feels better after transfusion. Review of Systems Review of Systems: Yes all other systems are reviewed and are negative Physical Exam Exam: Exam: General: A&O x3, oriented to time place person and siutaion, comfortable, no pain Cardiac: S1, S2 auscultated with no S3/4, grade IV ejection systolic murmur at the mitral region. Well perfused. Respiratory: Normal breath sounds auscultated throughout all lung zones, without wheezing, rales. Normal rate. GI/ : No abdominal pain on palpation, no masses or distentions. MSK: Normal ambulation without pain at bony prominences or musculature Neurological: Normal neurological examination on overview, without obvious CN II-XII abnormalities. Vital Signs: Vital Signs: Last Vital Signs Temp 97.5 F 07/03/25 15:12 Pulse 55 07/03/25 15:12 Resp 17 07/03/25 15:12 BP 144/79 H 07/03/25 15:12 Pulse Ox 97 07/03/25 15:12 O2 Del Method Room Air 07/03/25 15:12 BMI result Body Mass Index 23.7 Objective Data Active Medications Acetaminophen (Acetaminophen 325 Mg Tablet) 650 mg PO Q6H PRN PRN Reason: Pain, Mild 1-3,fever,headache Albuterol/Ipratropium (Albuterol/Iprat 2.5/0.5mg 3 Ml Ampul.Neb) 3 ml INHALE Q4H PRN PRN Reason: Shortness of Breath/Wheezing Calcium Carbonate (Calcium Carbonate 750 Mg Tab.Chew) 750 mg PO Q4H PRN PRN Reason: Heartburn Cyanocobalamin (Cyanocobalamin (Vitamin B-12) 1,000 Mcg/Ml Vial) 1,000 mcg IM DAILY EMILIE Stop: 07/06/25 09:01 Last Admin: 07/03/25 09:05 Dose: 1,000 mcg Documented By: SHIRIN Thiamine HCl 100 mg/ Sodium (Chloride) 101 mls @ 202 mls/hr IV DAILY [facility] Last Infusion: 07/03/25 09:49 Dose: Infused Documented By: RIGO Folic Acid 1 mg/ Sodium (Chloride) 50.2 mls @ 100.4 mls/hr IV DAILY [facility] Last Infusion: 07/03/25 11:09 Dose: Infused Documented By: RIGO Magnesium Hydroxide (Milk Of Magnesia 30 Ml Oral.Susp) 30 ml PO DAILY PRN PRN Reason: Constipation Melatonin (Melatonin 3 Mg Tablet) 6 mg PO BEDTIME PRN PRN Reason: Insomnia Nicotine (Nicotine 14 Mg Patch.Td24) 14 mg TRANSDERMA DAILY [facility] Last Admin: 07/03/25 13:25 Dose: 14 mg Documented By: RIGO Ondansetron HCl (Ondansetron Hcl 4 Mg/2 Ml Vial) 4 mg IVPUSH Q8H PRN PRN Reason: Nausea and Vomiting Pantoprazole Sodium (Pantoprazole Sodium 40 Mg/10 Ml Vial) 40 mg IVPUSH BID@0630,1630 [facility] Last Admin: 07/03/25 06:04 Dose: 40 mg Documented By: STORMY Polyethylene Glycol (Polyethylene Glycol 3350 17 Gm Powd.Pack) 17 gm PO DAILY PRN PRN Reason: Constipation Sodium Chloride (0.9 % Sodium Chloride Flush 3 Ml Syringe) 3 ml IVFLUSH QSHIFT [facility] Last Admin: 07/03/25 07:20 Dose: 3 ml Documented By: SHIRIN Labs 07/03/25 04:39 07/03/25 04:39 Labs: Laboratory Results - last 24 hr 07/02/25 07/02/25 07/02/25 20:19 21:08 21:14 MCV 59.3 L MCH 16.0 L MCHC 27.0 L RDW 24.4 H Plt Count 221 MPV 8.9 L Immature Gran % (Auto) 0.3 Neut % (Auto) 67.3 Lymph % (Auto) 22.7 Dane % (Auto) 6.6 Eos % (Auto) 2.1 Baso % (Auto) 1.0 Lymph # (Auto) 1.4 Dane # (Auto) 0.4 Eos # (Auto) 0.1 Baso # (Auto) 0.1 Abs Immat Gran (auto) 0.02 Absolute Neuts (auto) 4.1 Absolute Nucleated RBC 0.000 Nucleated RBC % (auto) 0.0 Smear Path Review SEE NOTE Absolute Retic Percent Retic Immature Retic Fraction Retic Hgb Equivalent PT 10.9 INR 1.0 Anion Gap 14 Estim Creat Clear Calc 56.0 Estimated GFR > 60 Random Glucose 92 Haptoglobin Uric Acid 9.2 H Calcium 8.3 L D Magnesium 2.0 Iron 8 L TIBC 410 % Saturation 2 L Unsat Iron Binding 402 Ferritin Total Bilirubin 0.3 AST 22 ALT 8 Alkaline Phosphatase 73 Lactate Dehydrogenase 194 Total Protein 6.7 Albumin 4.0 Vitamin B12 Folate Stool Occult Blood NEGATIVE Blood Type A Negative Antibody Screen NEGATIVE Crossmatch See Detail 07/03/25 07/03/25 00:24 04:39 MCV 64.5 L D MCH 18.9 L MCHC 29.2 L RDW 27.2 H Plt Count 191 MPV 9.0 L Immature Gran % (Auto) 0.6 H Neut % (Auto) 62.2 Lymph % (Auto) 22.2 Dane % (Auto) 9.7 Eos % (Auto) 3.8 Baso % (Auto) 1.5 Lymph # (Auto) 1.2 Dane # (Auto) 0.5 Eos # (Auto) 0.2 Baso # (Auto) 0.1 Abs Immat Gran (auto) 0.03 Absolute Neuts (auto) 3.3 Absolute Nucleated RBC 0.020 H Nucleated RBC % (auto) 0.4 H Smear Path Review Absolute Retic 0.005 L Percent Retic 0.7 Immature Retic Fraction 31.5 H Retic Hgb Equivalent 14.3 L PT INR Anion Gap 15 Estim Creat Clear Calc 65.0 Estimated GFR > 60 Random Glucose 70 Haptoglobin 168 Uric Acid Calcium 8.0 L Magnesium Iron TIBC % Saturation Unsat Iron Binding Ferritin 9 L Total Bilirubin AST ALT Alkaline Phosphatase Lactate Dehydrogenase Total Protein Albumin Vitamin B12 207 Folate < 2.2 L Stool Occult Blood Blood Type Antibody Screen Crossmatch Assessment and Plan (1) Chronic systolic CHF (congestive heart failure): Status: Acute (2) Cardiomyopathy: Status: Acute (3) Mitral valve regurgitation: Status: Acute (4) AICD (automatic cardioverter/defibrillator) present: Status: Acute (5) Acute anemia: Status: Acute Plan 70M with PMH of CAD, HTN, HLD, EtOH abuse, tobacco dependence, CVA (2019), thoracic aortic aneurysmal repair 2014 no dissection, HFrEF 45-50 % 2019 s/p AICD in place, mitral valve regurgitation, gout presents to ED with complaint of worsening dizziness weakness, exertional dyspnoea over the last 6-7 months, admitted with acute symptomatic anemia s/p 2u PRBC. Acute Symptomatic Anemia MYRNA B12/ Thiamine/ Folic acid deficiency s/p 2u PRBC 07/02/25 No new medications. Drinks EtOH No NOAC/ NSAID/ AC use; ASA 81mg daily No evidence of haemolytic anemia PLAN - GI consultation placed - Hematology consultation placed - Pantoprazole 40mg BID IV - NPO midnight - EGD and Colonoscopy planned - Iron supplementation - B-vitamin supplementation - Monitor H&H - Another PRBC transfusion; furosemide 20mg IV once after Ischemic CHFrEF 45-50% AICD 2019 MVR Thoracic AA repair 2014 Device info: pulse generator: rapt.fmia AF MRI VR SureScan [id number] lead: Sprint QuYouTabo Secure MR Model # [id number] ? 55 cm PLAN - Cardiology consutlation placed - ECHO evaluation - Device interrogation needed - Another PRBC transfusion; furosemide 20mg IV once after - BB coverage - Spironolactone - Hold ASA EtOH Abuse CIWA in place, no indication currently for phenobarbitol protocol Addictions consulted LFTs stable GI consulted CT abd with IV contrast ordered Thiamine and Folic Acid ordered Tick exposure Tick exposure panel ordered HLD Continue statin once no longer NPO Cardiac Diet QUALITY [employer] DVT prophylaxis: contraindicated due to acute anemia and need for transfusion MED REC PENDING FULL CODE Total time managing care of this patient today: 35 minutes. Quality Stroke Does the patient have a stroke diagnosis?: No Reason for No Anti-thrombotic by Day Two: Contraindicated (possible GIB ) VTE Prior VTE?: No VTE Risk Level:: Medical - moderate - high VTE Device Contraindication: N/A - Device Ordered VTE Drug Contraindication: Treatment Not Indicated
[2025-07-03] MEDS: PEG 3350/Na Sulf,Bicarb,Cl/KCL 4,000 ML SOLN.RECON 4000 ML PO (16:12)
[2025-07-04] VITALS (10 sets, daily range): BP systolic 110–178; BP diastolic 52–84; PULSE 53–80; RESP 14–18; TEMP 36.1–36.9; O2SAT 94–99
[2025-07-04 08:04] LABS: Hematocrit 36.5 % (42.0-52.0); Hemoglobin 11.0 g/dl (14.0-18.0); Mean Corpuscular HGB Conc 30.1 g/dl (31.0-36.0); Mean Corpuscular Hemoglobin 21.0 pg (27.0-33.0); Mean Corpuscular Volume 69.5 fL (80.0-98.0); NRBC Abs Auto 0.000 X10*3/uL (0.0-0.012); NRBC Pct Auto 0.0 /100WBC (0.0-0.2); Platelet Count 250 X10*3/uL (160-400); Red Blood Count 5.25 X10*6/uL (4.60-5.80); White Blood Count 7.7 X10*3/uL (4.8-10.8)
--- NOTE | 2025-07-04 08:26 | MHC.SHP ---
Pre-Procedural Eval Section A - 24 Hr Update-Section A only Date of Service: 07/04/25 The patient is an INPATIENT: Yes Changes since office visit: Yes New Medical Problems, Yes Changes in Medication and Yes Patient answered all questions; No Cold of Flu in the past 2 weeks The patient has been examined within 24 hours of the surgical procedure. The History & Physical has been completed within 30 days and I have reviewed it.: Yes Section B - Complete if H&P > 30 days Chief Complaint: severe anemia Allergies: Allergies Allergy/AdvReac Type Severity Reaction Status Date / Time lisinopril Allergy Severe Angioedema Verified 07/02/25 19:53 Plan Diagnosis/Plan: Unchanged I have reviewed the history and physical and performed a pertinent physical examination on my patient. No changes have occurred unless specified. Time Spent With Patient Time: Total time managing care of this patient today ____ minutes.
--- NOTE | 2025-07-04 08:47 | P.OPN-COLO_ITS ---
Colonoscopy Operative Note Operative Note Date of Service: 07/04/25 Narrative: FLEXIBLE TRANSORAL UPPER GASTROINTESTINAL ENDOSCOPY WITH BIOPSIES AND COLONOSCOPY TILL CECUM WITH SNARE POLYPECTOMY, SUBMUCOSAL INJECTION, HEMOCLIP PLACEMENT AND APC OF CECAL AVMS Pre-op diagnosis: Acute on chronic MYRNA, Colon cancer screening Post-op diagnosis: Gastritis, gastric ulcers, duodenitis, cecal AVMs, colon polyps, Diverticulosis, hemorrhoids Endoscopist:? Maximo Alexandra MD Anesthesia:?MAC UPPER ENDOSCOPY Consent: Indications for the procedure and potential complications of bleeding, perforation, reaction to medications and missed diagnosis were discussed with the patient and informed consent was obtained. Instrument: Olympus GIF H 190 mid size upper endoscope Monitoring: Vital signs and clinical assessment, continuous EKG monitoring, Pulse oximetry, Carbon Dioxide monitoring and blood pressure monitoring were done throughout the procedure. Procedure: The patient was placed in the left lateral decubitis position and pre-procedure medications were administered and a bite block was placed. The endoscope was inserted into the mouth and advanced under direct vision to the third part of duodenum. A careful inspection was made as the upper endoscope was withdrawn including a retroflexed examination of the proximal stomach; Findings and interventions are described below. Findings: Larynx: Normal Esophagus: GE junction at 40 cms. No esophagitis or Rodgers's. Mildly tortuous esophagus without stricture or ring. Stomach: A few 5-6 mm superficial non-bleeding ulcers in the gastric antrum - biopsied. Moderate diffuse gastric erythema - biopsies were obtained from the antrum. Grade 2 flap valve on retroflexed examination of the cardia. Duodenum: Mild duodenitis in the bulb and normal descending duodenum Biopsies were obtained from descending duodenum to check for celiac sprue Intervention: Biopsies as noted above COLONOSCOPY PROCEDURE NOTE Instrument: Olympus PCF H 190 L variable stiffness pediatric colonoscope Monitoring: Vital signs and clinical assessment, intermittent blood pressure monitoring, continuous EKG monitoring, Pulse oximetry and Carbon Dioxide monitoring were done throughout the procedure. Please see anesthesia flowsheet. Colon withdrawl time was 25 minutes. Procedure: The patient was placed in the left lateral decubitis position and pre-procedure medications were administered. After a digital rectal examination of the ano-rectum, the video colonoscope was inserted into the rectum and advanced through the colon to the cecum. The colonoscope was slowly withdrawn in a retrograde panoramic fashion and the colon mucosa was carefully examined including a retroflexed view of the rectum. Findings and interventions are described below. Procedure Difficulty: without difficulty Findings: Terminal Ileum: Not evaluated Cecum: Two 7 to 15 mm non-bleeding AVMs in the cecum - ablated with APC. A 7-8 mm sessile polyp - removed with a cold snare Ascending Colon: Normal Transverse Colon: A 2 cms pedunculated polyp in the distal transverse colon at 60 cms. polyp was removed with a hot snare and retrieved with a De La Fuente net. Polypectomy site was closed with 1 hemoclip and marked with Ranjana ink Descending Colon: moderate diverticulosis Sigmoid Colon: severe diverticulosis with luminal narrowing Rectum: A 7-8 mm sessile polyp - removed with a hot snare Ano-rectum: Moderate internal hemorrhoids Colon preparation: Good after some irrigation. [place] Bowel Preparation Scale Right colon; 2 Transverse colon: 2 Left colon; 2 (0 = Unprepared colon segment with mucosa not seen due to solid stool that cannot be cleared. 1 = Portion of mucosa of the colon segment seen, but other areas of the colon segment not well seen due to staining, residual stool and/or opaque liquid. 2 = Minor amount of residual staining, small fragments of stool and/or opaque liquid, but mucosa of colon segment seen well. 3 = Entire mucosa of colon segment seen well with no residual staining, small fragments of stool or opaque liquid) Impression and Post Procedure Diagnosis: Endoscopy Findings: ESOPHAGUS: Mildly tortuous esophagus without stricture or ring. STOMACH: A few 5-6 mm superficial non-bleeding ulcers in the gastric antrum - likely due to aspirin. Moderate diffuse gastric erythema - biopsies were obtained from the antrum. DUODENUM: Mild duodenitis in the bulb and normal descending duodenum - biopsied to check for celiac sprue Colonoscopy Findings: Three small to medium sized polyps were removed Moderate diverticulosis seen in the left colon Moderate hemorrhoids on retroflexed exam. Plan: Resume a cardiac diet Start ferrous sulfate once daily for MYRNA and FU CBC in 2 weeks. I will contact the patient with biopsy results. Capsule endoscopy if pt has recurrent anemia in the future to look for small bowel AVMs. Repeat Colonoscopy in 3 years if polyps are adenomatous and can discontinue colon cancer screening if polyps are hyperplastic. Above findings were reviewed with the patient.
[2025-07-04] MEDS: Nicotine 14 MG PATCH.TD24 TRANSDERMA (10:31)
[2025-07-04] MEDS: Thiamine HCL 100 MG in 0.9 % Sodium Chloride 100 ML 202 MG IV (10:32)
--- NOTE | 2025-07-04 10:58 | HO.ANESPROP2 ---
HPI - Anesthesia Eval Consult details Narrative: 70 M w/ GIB [facility] Active Problems Active Problems: All Active Problems (Updated 07/03/25 @ 10:45 by Shay Fontanez MD) Cardiomyopathy (Acute) Mitral valve regurgitation (Acute) Tobacco dependence (Acute) Alcohol use disorder (Acute) Cardiac defibrillator in place (Acute) Acute anemia (Acute) Anemia (Acute) Cellulitis (Acute) Gout flare (Acute) Toe erythema (Acute) CAD (coronary artery disease) (Acute) Chronic systolic CHF (congestive heart failure) (Acute) AICD (automatic cardioverter/defibrillator) present (Acute) High cholesterol (Acute) HTN (hypertension) (Acute) Past Medical History Medical History Mitral valve regurgitation Tobacco dependence Alcohol use disorder Gout Cardiac defibrillator in place Chronic systolic CHF (congestive heart failure) Toe erythema Left ventricular aneurysm CVA (cerebral vascular accident) Tumor High cholesterol HTN (hypertension) Functional capacity: uses cane/walker Family History Family history of problems with anesthesia: No Surgical History History of Problems with Anesthesia: No Social History Social History Household Members: Other Household Members Other:: sister in law Housing: House Are you a primary director career services to a significant other at home: No Do you presently have visiting nurse or other home services: No Alcohol intake: current Alcohol intake frequency: 3 or more drinks per day Alcohol type: hard liquor Comment: 5-6 marilia nips per week, may be underestimated Patient Tobacco Use Status: Current everyday Tobacco user Tobacco use type: Cigarette Second Hand Smoke Exposure: No service: No Current occupational status: retired Meds Allergies Allergy/AdvReac Type Severity Reaction Status Date / Time lisinopril Allergy Severe Angioedema Verified 07/02/25 19:53 Active Medications: Current Medications Acetaminophen (Acetaminophen 325 Mg Tablet) 650 mg PO Q6H PRN PRN Reason: Pain, Mild 1-3,fever,headache Albuterol/Ipratropium (Albuterol/Iprat 2.5/0.5mg 3 Ml Ampul.Neb) 3 ml INHALE Q4H PRN PRN Reason: Shortness of Breath/Wheezing Calcium Carbonate (Calcium Carbonate 750 Mg Tab.Chew) 750 mg PO Q4H PRN PRN Reason: Heartburn Cyanocobalamin (Cyanocobalamin (Vitamin B-12) 1,000 Mcg/Ml Vial) 1,000 mcg IM DAILY [facility] Stop: 07/06/25 09:01 Last Admin: 07/04/25 10:31 Dose: 1,000 mcg Thiamine HCl 100 mg/ Sodium (Chloride) 101 mls @ 202 mls/hr IV DAILY [facility] Last Admin: 07/04/25 10:32 Dose: 202 mls/hr Folic Acid 1 mg/ Sodium (Chloride) 50.2 mls @ 100.4 mls/hr IV DAILY [facility] Last Infusion: 07/03/25 11:09 Dose: Infused Magnesium Hydroxide (Milk Of Magnesia 30 Ml Oral.Susp) 30 ml PO DAILY PRN PRN Reason: Constipation Melatonin (Melatonin 3 Mg Tablet) 6 mg PO BEDTIME PRN PRN Reason: Insomnia Nicotine (Nicotine 14 Mg Patch.Td24) 14 mg TRANSDERMA DAILY [facility] Last Admin: 07/04/25 10:31 Dose: 14 mg Ondansetron HCl (Ondansetron Hcl 4 Mg/2 Ml Vial) 4 mg IVPUSH Q8H PRN PRN Reason: Nausea and Vomiting Pantoprazole Sodium (Pantoprazole Sodium 40 Mg/10 Ml Vial) 40 mg IVPUSH BID@0630,1630 [facility] Last Admin: 07/04/25 05:50 Dose: 40 mg Polyethylene Glycol (Polyethylene Glycol 3350 17 Gm Powd.Pack) 17 gm PO DAILY PRN PRN Reason: Constipation Sodium Chloride (0.9 % Sodium Chloride Flush 3 Ml Syringe) 3 ml IVFLUSH QSHIFT [facility] Last Admin: 07/04/25 09:08 Dose: Not Given Home Medications ?Medication ?Instructions ?Recorded ?Confirmed ?Last Taken ?Type atorvastatin 80 mg tablet 80 mg PO BEDTIME 02/25/25 07/03/25 02/24/25 History metoprolol succinate 25 mg 25 mg PO DAILY 02/25/25 07/03/25 02/24/25 History tablet,extended release 24 hr Exam Height,Weight and Vital Signs: Height 5 ft 4 in Weight 138 lb 3.677 oz Last Vital Signs Temp 97.6 F 07/04/25 10:25 Pulse 54 07/04/25 10:25 Resp 14 07/04/25 10:25 BP 152/74 H 07/04/25 10:25 Pulse Ox 97 07/04/25 10:25 O2 Del Method Room Air 07/04/25 10:25 Pertinent Lab Results Pertinent Lab Results: Laboratory Tests 07/02/25 07/02/25 07/02/25 20:19 21:08 21:14 WBC 6.1 RBC 3.00 L Hgb 4.8 L* D Hct 17.8 L* D MCV 59.3 L MCH 16.0 L MCHC 27.0 L RDW 24.4 H Plt Count 221 MPV 8.9 L Immature Gran % (Auto) 0.3 Neut % (Auto) 67.3 Lymph % (Auto) 22.7 [place] % (Auto) 6.6 Eos % (Auto) 2.1 Baso % (Auto) 1.0 Lymph # (Auto) 1.4 [place] # (Auto) 0.4 Eos # (Auto) 0.1 Baso # (Auto) 0.1 Abs Immat Gran (auto) 0.02 Absolute Neuts (auto) 4.1 Absolute Nucleated RBC 0.000 Nucleated RBC % (auto) 0.0 Smear Path Review SEE NOTE Absolute Retic Percent Retic Immature Retic Fraction Retic Hgb Equivalent Hold Purple Top PT 10.9 INR 1.0 Sodium 142 Potassium 3.9 Chloride 107 Carbon Dioxide 25 Anion Gap 14 BUN 18 H Creatinine 1.09 Estim Creat Clear Calc 56.0 Estimated GFR > 60 Random Glucose 92 Haptoglobin Uric Acid 9.2 H Calcium 8.3 L D Magnesium 2.0 Iron 8 L TIBC 410 % Saturation 2 L Unsat Iron Binding 402 Ferritin Total Bilirubin 0.3 AST 22 ALT 8 Alkaline Phosphatase 73 Lactate Dehydrogenase 194 Troponin I High Sens 19.6 Total Protein 6.7 Albumin 4.0 Vitamin B12 Folate Stool Collect Date Stool Occult Blood NEGATIVE Stool 2 Collect Date Stool Occult Blood #2 Stool 3 Collect Date Stool Occult Blood #3 Blood Type A Negative Antibody Screen NEGATIVE Crossmatch See Detail 07/03/25 07/03/25 07/03/25 00:24 04:39 17:15 WBC 5.3 RBC 3.66 L D Hgb 6.9 L* D Hct 23.6 L D MCV 64.5 L D MCH 18.9 L MCHC 29.2 L RDW 27.2 H Plt Count 191 MPV 9.0 L Immature Gran % (Auto) 0.6 H Neut % (Auto) 62.2 Lymph % (Auto) 22.2 [place] % (Auto) 9.7 Eos % (Auto) 3.8 Baso % (Auto) 1.5 Lymph # (Auto) 1.2 [place] # (Auto) 0.5 Eos # (Auto) 0.2 Baso # (Auto) 0.1 Abs Immat Gran (auto) 0.03 Absolute Neuts (auto) 3.3 Absolute Nucleated RBC 0.020 H Nucleated RBC % (auto) 0.4 H Smear Path Review Absolute Retic 0.005 L Percent Retic 0.7 Immature Retic Fraction 31.5 H Retic Hgb Equivalent 14.3 L Hold Purple Top PT INR Sodium 141 Potassium 4.1 Chloride 109 H Carbon Dioxide 21 L Anion Gap 15 BUN 14 Creatinine 0.94 Estim Creat Clear Calc 65.0 Estimated GFR > 60 Random Glucose 70 Haptoglobin 168 Uric Acid Calcium 8.0 L Magnesium Iron TIBC % Saturation Unsat Iron Binding Ferritin 9 L Total Bilirubin AST ALT Alkaline Phosphatase Lactate Dehydrogenase Troponin I High Sens Total Protein Albumin Vitamin B12 207 Folate < 2.2 L Stool Collect Date Cancelled Stool Occult Blood Cancelled Stool 2 Collect Date Cancelled Stool Occult Blood #2 Cancelled Stool 3 Collect Date Cancelled Stool Occult Blood #3 Cancelled Blood Type Antibody Screen Crossmatch 07/04/25 06:10 WBC 7.7 RBC 5.25 D Hgb 11.0 L D Hct 36.5 L D MCV 69.5 L D MCH 21.0 L MCHC 30.1 L RDW 30.3 H Plt Count 250 D MPV Not Reportable Immature Gran % (Auto) Neut % (Auto) Lymph % (Auto) [place] % (Auto) Eos % (Auto) Baso % (Auto) Lymph # (Auto) [place] # (Auto) Eos # (Auto) Baso # (Auto) Abs Immat Gran (auto) Absolute Neuts (auto) Absolute Nucleated RBC 0.000 Nucleated RBC % (auto) 0.0 Smear Path Review Absolute Retic Percent Retic Immature Retic Fraction Retic Hgb Equivalent Hold Purple Top SEE NOTE PT INR Sodium Potassium Chloride Carbon Dioxide Anion Gap BUN Creatinine Estim Creat Clear Calc Estimated GFR Random Glucose Haptoglobin Uric Acid Calcium Magnesium Iron TIBC % Saturation Unsat Iron Binding Ferritin Total Bilirubin AST ALT Alkaline Phosphatase Lactate Dehydrogenase Troponin I High Sens Total Protein Albumin Vitamin B12 Folate Stool Collect Date Stool Occult Blood Stool 2 Collect Date Stool Occult Blood #2 Stool 3 Collect Date Stool Occult Blood #3 Blood Type Antibody Screen Crossmatch Airway Loose/Missing/Broken Teeth: Yes Assessment and Plan Assessment Anesthesia Assessment: Anesthesia Plan Discussed and Chart Reviewed Final Anesthetic Review Family History of Problems with Anesthesia: No History of Problems with Anesthesia: No NPO: Yes ASA Class: IV and Emergency Final Preanesthetic Review: No Changes in Pt Med Stat, Meds/Allgs Chart Reviewed, Consent Obtained/Reviewed and Anes Risks/Benef Reviewed Patient Risk: Intermediate Procedure Risk: Low Anesthetic Plan Anesthetic Plan: MAC: Disposition: Standard PACU
--- NOTE | 2025-07-04 12:18 | HO.PM.IMPN ---
Subjective Subjective Date of Service: 07/04/25 Interval History: Patient reports feeling better today than he did yesterday. Planned EGD/colonoscopy was performed this morning. EGD revealing multiple ulcers in the stomach. Colonoscopy revealing 3 polyps and colon which were removed AVMs in the cecum which were cauterized. Review of Systems Review of Systems: Yes all other systems are reviewed and are negative Constitutional Constitutional: Reports as per HPI Physical Exam Exam: Exam: General: A&O x3, oriented to time place person and situation, comfortable, no pain Cardiac: S1, S2 auscultated with no S3/4, no MRG. Well perfused. Respiratory: Normal breath sounds auscultated throughout all lung zones, without wheezing, rales. Normal rate. GI/ : No abdominal pain on palpation, no masses or distentions. MSK: Normal ambulation without pain at bony prominences or musculature Neurological: Normal neurological examination on overview, without obvious CN II-XII abnormalities. Vital Signs: Vital Signs: Last Vital Signs Temp 97.6 F 07/04/25 10:25 Pulse 54 07/04/25 10:25 Resp 14 07/04/25 10:25 BP 152/74 H 07/04/25 10:25 Pulse Ox 97 07/04/25 10:25 O2 Del Method Room Air 07/04/25 10:25 BMI result Body Mass Index 23.7 Objective Data Active Medications Acetaminophen (Acetaminophen 325 Mg Tablet) 650 mg PO Q6H PRN PRN Reason: Pain, Mild 1-3,fever,headache Albuterol/Ipratropium (Albuterol/Iprat 2.5/0.5mg 3 Ml Ampul.Neb) 3 ml INHALE Q4H PRN PRN Reason: Shortness of Breath/Wheezing Calcium Carbonate (Calcium Carbonate 750 Mg Tab.Chew) 750 mg PO Q4H PRN PRN Reason: Heartburn Cyanocobalamin (Cyanocobalamin (Vitamin B-12) 1,000 Mcg/Ml Vial) 1,000 mcg IM DAILY [facility] Stop: 07/06/25 09:01 Last Admin: 07/04/25 10:31 Dose: 1,000 mcg Documented By: MARY JO Thiamine HCl 100 mg/ Sodium (Chloride) 101 mls @ 202 mls/hr IV DAILY [facility] Last Infusion: 07/04/25 11:55 Dose: Infused Documented By: MARY JO Folic Acid 1 mg/ Sodium (Chloride) 50.2 mls @ 100.4 mls/hr IV DAILY [facility] Last Infusion: 07/04/25 12:15 Dose: Infused Documented By: MARY JO Magnesium Hydroxide (Milk Of Magnesia 30 Ml Oral.Susp) 30 ml PO DAILY PRN PRN Reason: Constipation Melatonin (Melatonin 3 Mg Tablet) 6 mg PO BEDTIME PRN PRN Reason: Insomnia Nicotine (Nicotine 14 Mg Patch.Td24) 14 mg TRANSDERMA DAILY [facility] Last Admin: 07/04/25 10:31 Dose: 14 mg Documented By: MARY JO Ondansetron HCl (Ondansetron Hcl 4 Mg/2 Ml Vial) 4 mg IVPUSH Q8H PRN PRN Reason: Nausea and Vomiting Pantoprazole Sodium (Pantoprazole Sodium 40 Mg/10 Ml Vial) 40 mg IVPUSH BID@0630,1630 [facility] Last Admin: 07/04/25 05:50 Dose: 40 mg Documented By: MOLLY Polyethylene Glycol (Polyethylene Glycol 3350 17 Gm Powd.Pack) 17 gm PO DAILY PRN PRN Reason: Constipation Sodium Chloride (0.9 % Sodium Chloride Flush 3 Ml Syringe) 3 ml IVFLUSH QSHIFT [facility] Last Admin: 07/04/25 09:08 Dose: Not Given Documented By: MARY JO Non-Admin Reason: Off Unit: Surgery Labs 07/04/25 06:10 07/03/25 04:39 Labs: Laboratory Results - last 24 hr 07/02/25 07/03/25 07/04/25 20:19 17:15 06:10 MCV 69.5 L D MCH 21.0 L MCHC 30.1 L RDW 30.3 H Plt Count 250 D MPV Not Reportable Absolute Nucleated RBC 0.000 Nucleated RBC % (auto) 0.0 Smear Path Review SEE NOTE Hold Purple Top SEE NOTE Stool Collect Date Cancelled Stool Occult Blood Cancelled Stool 2 Collect Date Cancelled Stool Occult Blood #2 Cancelled Stool 3 Collect Date Cancelled Stool Occult Blood #3 Cancelled Assessment and Plan (1) Chronic systolic CHF (congestive heart failure): Status: Acute (2) Cardiomyopathy: Status: Acute (3) Mitral valve regurgitation: Status: Acute (4) AICD (automatic cardioverter/defibrillator) present: Status: Acute (5) Acute anemia: Status: Acute (6) Alcohol use disorder: Status: Acute Plan 70M with PMH of CAD, HTN, HLD, EtOH abuse, tobacco dependence, CVA (2019), thoracic aortic aneurysmal repair 2014 no dissection, HFrEF 45-50 % 2019 s/p AICD in place, mitral valve regurgitation, gout presents to ED with complaint of worsening dizziness weakness, exertional dyspnoea over the last 6-7 months, admitted with acute symptomatic anemia s/p 2u PRBC. Status post colonoscopy and EGD revealing multiple small ulcers in stomach, 3 polyps in the colon which were removed and AVMs in the cecum which were cauterized. Acute Symptomatic Anemia Stomach ulcers AVM in cecum status post cauterization MYRNA B12/ Thiamine/ Folic acid deficiency Status post colonoscopy and EGD revealing multiple small ulcers in stomach, 3 polyps in the colon which were removed and AVMs in the cecum which were cauterized. s/p 2u PRBC 07/02/25 No new medications. Drinks EtOH No NOAC/ NSAID/ AC use; ASA 81mg daily No evidence of haemolytic anemia PLAN - GI recommendations greatly appreciated - Hematology consultation placed - transitioned pantoprazole IV to p.o. - Iron supplementation - B-vitamin supplementation - Monitor H&H Ischemic CHFrEF 45-50% AICD 2019 MVR Thoracic AA repair 2014 Device info: pulse generator: [employer] AF MRI VR SureScan [id number] lead: Sprint Quattro Secure MR Model # 6935M ? 55 cm PLAN - Cardiology consutlation placed - ECHO evaluation - Device interrogation outpatient - BB coverage; metoprolol - Spironolactone; started - continue high-intensity statin - Hold ASA EtOH Abuse CIWA in place, no indication currently for phenobarbitol protocol LFTs stable GI consulted Thiamine and Folic Acid ordered Tick exposure Tick exposure panel ordered HLD Continue statin once no longer NPO Cardiac Diet QUALITY METRICS DVT prophylaxis: contraindicated due to acute anemia and need for transfusion MED REC PENDING FULL CODE Total time managing care of this patient today: 35 minutes. Quality Stroke Does the patient have a stroke diagnosis?: No Reason for No Anti-thrombotic by Day Two: Contraindicated (possible GIB ) VTE Prior VTE?: No VTE Risk Level:: Medical - moderate - high VTE Device Contraindication: N/A - Device Ordered VTE Drug Contraindication: Treatment Not Indicated
[2025-07-04 12:42] LABS: B Type Natriuretic Peptide 330 pg/mL (<100)
[2025-07-04] MEDS: Ferrous Sulfate 300 MG/5 ML LIQUID PO (13:50)
[2025-07-04 15:45] LABS: Albumin Level 4.1 g/dL (3.5-5.0); Anion Gap 14 (12-20); Blood Urea Nitrogen 12 mg/dL (9-16); Calcium 9.2 mg/dL (8.4-10.2); Carbon Dioxide 25 mmol/L (22-29); Chloride 101 mmol/L (96-108); Creatinine Clr Calc Pharmacy 58.8; Estimated Glomerular Filt Rate > 60; Magnesium 1.8 mg/dL (1.6-2.6); Potassium 3.8 mmol/L (3.3-5.1); Sodium 136 mmol/L (135-145)
[2025-07-04 15:56] LABS: B Type Natriuretic Peptide 812 pg/mL (<100)
[2025-07-04] MEDS: 0.9 % Sodium Chloride Flush 3 ML SYRINGE IVFLUSH ×2 (17:07→21:01)
[2025-07-05 03:35] VITALS: BP 151/77; PULSE 66; RESP 18; TEMP 37.3; O2SAT 97
[2025-07-05 06:56] LABS: Anion Gap 15 (12-20); Blood Urea Nitrogen 14 mg/dL (9-16); Calcium 9.2 mg/dL (8.4-10.2); Carbon Dioxide 23 mmol/L (22-29); Chloride 101 mmol/L (96-108); Creatinine Clr Calc Pharmacy 58.2; Estimated Glomerular Filt Rate > 60; Potassium 3.9 mmol/L (3.3-5.1); Sodium 135 mmol/L (135-145)
[2025-07-05 07:19] VITALS: BP 152/77; PULSE 67; RESP 16; TEMP 36.6; O2SAT 98
[2025-07-05] MEDS: Ferrous Sulfate 300 MG/5 ML LIQUID PO (08:44)
--- NOTE | 2025-07-05 08:44 | HO.POSTANES ---
Post Anesthesia Evaluation Post Anesthesia Evaluation Date of Service: 07/05/25 Vital Signs: Vital Signs Temp Pulse Resp BP Pulse Ox O2 Del Method 07/05/25 07:19 97.9 F 67 16 152/77 H 98 Room Air 07/05/25 03:35 99.1 F 66 18 151/77 H 97 Room Air 07/04/25 23:51 98.5 F 70 16 132/72 99 Room Air Anesthesia: Monitored Mental Status: Awake Pain Control: Satisfactory Nausea/Vomiting: None Hydration: Adequate Anesthesia-Related Issues: No Anes. Related Issues
[2025-07-05] MEDS: Nicotine 14 MG PATCH.TD24 TRANSDERMA (08:45)
[2025-07-05] MEDS: 0.9 % Sodium Chloride Flush 3 ML SYRINGE IVFLUSH ×3 (08:46→21:32)
[2025-07-05] MEDS: Furosemide 40 MG/4 ML VIAL IVPUSH ×2 (11:02→17:09)
[2025-07-05 11:25] VITALS: BP 112/60; PULSE 62; RESP 16; TEMP 36.1; O2SAT 98
[2025-07-05 16:00] VITALS: BP 130/68; PULSE 70; RESP 14; TEMP 36.3; O2SAT 99
--- NOTE | 2025-07-05 16:29 | HO.PM.IMPN ---
Subjective Subjective Date of Service: 07/05/25 Interval History: No new complaints today. Feeling much better. Reporting persistent cough and mild difficulty breathing Physical Exam Exam: Exam: General: A&O x3, oriented to time place person and situation, comfortable, no pain Cardiac: S1, S2 auscultated with no S3/4, no MRG. Well perfused. Respiratory: Mild crepitations auscultated bilaterally at the bases. No wheezing or rhonchi otherwise GI/ : No abdominal pain on palpation, no masses or distentions. MSK: Normal ambulation without pain at bony prominences or musculature Neurological: Normal neurological examination on overview, without obvious CN II-XII abnormalities. Vital Signs: Vital Signs: Last Vital Signs Temp 97.3 F 07/05/25 16:00 Pulse 70 07/05/25 16:00 Resp 14 07/05/25 16:00 BP 130/68 07/05/25 16:00 Pulse Ox 99 07/05/25 16:00 O2 Del Method Room Air 07/05/25 16:00 BMI result Body Mass Index 23.7 Objective Data Active Medications Acetaminophen (Acetaminophen 325 Mg Tablet) 650 mg PO Q6H PRN PRN Reason: Pain, Mild 1-3,fever,headache Albuterol/Ipratropium (Albuterol/Iprat 2.5/0.5mg 3 Ml Ampul.Neb) 3 ml INHALE Q4H PRN PRN Reason: Shortness of Breath/Wheezing Calcium Carbonate (Calcium Carbonate 750 Mg Tab.Chew) 750 mg PO Q4H PRN PRN Reason: Heartburn Cyanocobalamin (Cyanocobalamin (Vitamin B-12) 1,000 Mcg Tablet) 1,000 mcg PO DAILY [facility] Last Admin: 07/05/25 11:02 Dose: 1,000 mcg Documented By: ANDRA Ferrous Sulfate (Ferrous Sulfate 300 Mg/5 Ml Liquid) 300 mg PO DAILY [facility] Last Admin: 07/05/25 08:44 Dose: 300 mg Documented By: ANDRA Folic Acid (Folic Acid 1 Mg Tablet) 1 mg PO DAILY [facility] Last Admin: 07/05/25 11:02 Dose: 1 mg Documented By: ANDRA Magnesium Hydroxide (Milk Of Magnesia 30 Ml Oral.Susp) 30 ml PO DAILY PRN PRN Reason: Constipation Melatonin (Melatonin 3 Mg Tablet) 6 mg PO BEDTIME PRN PRN Reason: Insomnia Nicotine (Nicotine 14 Mg Patch.Td24) 14 mg TRANSDERMA DAILY [facility] Last Admin: 07/05/25 08:45 Dose: 14 mg Documented By: ANDRA Omeprazole (Omeprazole 40 Mg Capsule.Dr) 40 mg PO BID@0630,1630 [facility] Last Admin: 07/05/25 05:55 Dose: 40 mg Documented By: MOLLY Ondansetron HCl (Ondansetron Hcl 4 Mg/2 Ml Vial) 4 mg IVPUSH Q8H PRN PRN Reason: Nausea and Vomiting Polyethylene Glycol (Polyethylene Glycol 3350 17 Gm Powd.Pack) 17 gm PO DAILY PRN PRN Reason: Constipation Sodium Chloride (0.9 % Sodium Chloride Flush 3 Ml Syringe) 3 ml IVFLUSH QSHIFT [facility] Last Admin: 07/05/25 08:46 Dose: 3 ml Documented By: ANDRA Spironolactone (Spironolactone 25 Mg Tablet) 12.5 mg PO DAILY [facility]; Protocol Last Admin: 07/05/25 08:44 Dose: 12.5 mg Documented By: ANDRA Thiamine HCl (Thiamine Hcl 100 Mg Tablet) 100 mg PO DAILY [facility] Last Admin: 07/05/25 11:03 Dose: 100 mg Documented By: ANDRA Labs 07/04/25 06:10 07/05/25 06:08 Labs: Laboratory Results - last 24 hr 07/05/25 06:08 Hold Purple Top SEE NOTE Anion Gap 15 Estim Creat Clear Calc 58.2 Estimated GFR > 60 Random Glucose 93 Calcium 9.2 Assessment and Plan (1) Chronic systolic CHF (congestive heart failure): Status: Acute (2) Cardiomyopathy: Status: Acute (3) AICD (automatic cardioverter/defibrillator) present: Status: Acute (4) Acute anemia: Status: Acute Plan 70M with PMH of CAD, HTN, HLD, EtOH abuse, tobacco dependence, CVA (2019), thoracic aortic aneurysmal repair 2014 no dissection, HFrEF 45-50 % 2019 s/p AICD in place, mitral valve regurgitation, gout presents to ED with complaint of worsening dizziness weakness, exertional dyspnoea over the last 6-7 months, admitted with acute symptomatic anemia s/p 2u PRBC. Status post colonoscopy and EGD revealing multiple small ulcers in stomach, 3 polyps in the colon which were removed and AVMs in the cecum which were cauterized. Acute Symptomatic Anemia Stomach ulcers AVM in cecum status post cauterization MYRNA B12/ Thiamine/ Folic acid deficiency Status post colonoscopy and EGD revealing multiple small ulcers in stomach, 3 polyps in the colon which were removed and AVMs in the cecum which were cauterized. s/p 2u PRBC 07/02/25 No new medications. Drinks EtOH No NOAC/ NSAID/ AC use; ASA 81mg daily No evidence of haemolytic anemia PLAN - GI recommendations greatly appreciated - Hematology consultation placed - transitioned pantoprazole IV to p.o. - Iron supplementation - B-vitamin supplementation - Monitor H&H Ischemic CHFrEF 45-50% AICD 2019 MVR Thoracic AA repair 2014 Device info: pulse generator: [employer] AF MRI VR SureScan [id number] lead: [employer] Quattro Secure MR Model # [id number] ? 55 cm PLAN - Cardiology consutlation placed - ECHO evaluation - Device interrogation outpatient - BB coverage; metoprolol - Spironolactone; started - continue high-intensity statin - Hold ASA EtOH Abuse CIWA in place, no indication currently for phenobarbitol protocol LFTs stable GI consulted Thiamine and Folic Acid ordered Tick exposure Tick exposure panel ordered HLD Continue statin once no longer NPO Cardiac Diet QUALITY [employer] DVT prophylaxis: contraindicated due to acute anemia and need for transfusion MED REC PENDING FULL CODE Quality Stroke Does the patient have a stroke diagnosis?: No Reason for No Anti-thrombotic by Day Two: Contraindicated (possible GIB ) VTE Prior VTE?: No VTE Risk Level:: Medical - moderate - high VTE Device Contraindication: N/A - Device Ordered VTE Drug Contraindication: Treatment Not Indicated
[2025-07-05 19:31] VITALS: BP 122/78; PULSE 65; RESP 12; TEMP 36.4; O2SAT 100
[2025-07-05 22:08] LABS: A. Phagocytphilium DNA,RT-PCR NOT DETECTED (NOT DETECTED); Babesia Microti DNA, RT-PCR NOT DETECTED (NOT DETECTED); Borrelia Miyamotoi,DNA RT-PCR NOT DETECTED (NOT DETECTED); E.Chaffeensis DNA RT-PCR NOT DETECTED (NOT DETECTED); Lyme(Borrelia ssp)DNA RT-PCR NOT DETECTED (NOT DETECTED)
[2025-07-05 23:22] VITALS: BP 134/74; PULSE 64; RESP 16; TEMP 36.1; O2SAT 96
[2025-07-06 02:58] VITALS: BP 129/61; PULSE 65; RESP 16; TEMP 36.1; O2SAT 96
[2025-07-06 06:23] LABS: Anion Gap 12 (12-20); Blood Urea Nitrogen 18 mg/dL (9-16); Calcium 8.9 mg/dL (8.4-10.2); Carbon Dioxide 26 mmol/L (22-29); Chloride 102 mmol/L (96-108); Creatinine Clr Calc Pharmacy 53.7; Estimated Glomerular Filt Rate > 60; Potassium 3.5 mmol/L (3.3-5.1); Sodium 136 mmol/L (135-145)
[2025-07-06 07:50] VITALS: BP 156/71; PULSE 64; RESP 18; TEMP 37.1; O2SAT 94
[2025-07-06] MEDS: Ferrous Sulfate 300 MG/5 ML LIQUID PO (08:05)
[2025-07-06] MEDS: Nicotine 14 MG PATCH.TD24 TRANSDERMA (08:09)
[2025-07-06] MEDS: 0.9 % Sodium Chloride Flush 3 ML SYRINGE IVFLUSH (08:10)
[2025-07-06 09:54] VITALS: BP 114/58; PULSE 66; RESP 18; TEMP 36.1; O2SAT 97
--- NOTE | 2025-07-06 10:32 | MHC.CM.PN ---
DP: PT HAS BEEN MEDICALLY CLEARED FOR DC HOME, NO SERVICES. PT WILL TAKE [facility] AT 11 AM. FINAL IMM DELIVERED.
--- NOTE | 2025-07-06 12:06 | PM.DS ---
DS: Providers Provider Date of Service: 07/02/25 Date of admission: 07/02/25 22:43 Date of discharge: 07/06/25 Primary care physician: None Physician Consults: 07/02/25 22:56 Consult to Gastroenterology Routine Consulting Provider: Maximo Alexandra Reason for consultation: ? 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, can't afford copay 07/03/25 00:16 Consult to Cardiology Routine Consulting Provider: [facility] Reason for consultation: no cardiac care since AICD placed 2015 HFrEF, has acute anemia 07/03/25 00:26 Consult to Hematology / Oncology Routine Consulting Provider: [facility] [place] Reason for consultation: acute anemia Has provider been notified: No Attending physician on discharge: Travis Thao DS: Diagnosis Discharge Diagnosis (1) Chronic systolic CHF (congestive heart failure): Status: Acute (2) Cardiomyopathy: Status: Acute (3) AICD (automatic cardioverter/defibrillator) present: Status: Acute (4) Acute anemia: Status: Acute DS: Summary Hospital Course Hospital Course: 70M with PMH of CAD, HTN, HLD, EtOH abuse, tobacco dependence, CVA (2019), thoracic aortic aneurysmal repair 2014 no dissection, HFrEF 45-50 % 2019 s/p AICD in place, mitral valve regurgitation, gout presents to ED with complaint of worsening dizziness weakness, exertional dyspnoea over the last 6-7 months, admitted with acute symptomatic anemia s/p 2u PRBC. Status post colonoscopy and EGD revealing multiple small ulcers in stomach, 3 polyps in the colon which were removed and AVMs in the cecum which were cauterized. Acute Symptomatic Anemia UGIB - Stomach ulcers AVM in cecum status post cauterization MYRNA B12/ Thiamine/ Folic acid deficiency Status post colonoscopy and EGD revealing multiple small ulcers in stomach, 3 polyps in the colon which were removed and AVMs in the cecum which were cauterized. s/p 2u PRBC 07/02/25 No new medications at home Drinks EtOH No NOAC/ NSAID/ AC use; ASA 81mg daily No evidence of haemolytic anemia Continue PPI b.i.d. p.o. for 10 more days, then transition to 40 mg ODT p.o. Follow-up with gastroenterology in the outpatient setting. Ischemic CHFrEF 45-50% AICD 2019 MVR Thoracic AA repair 2014 Device info: pulse generator: Visia AF MRI VR SureScan [id number] lead: Sprint Quattro Secure MR Model # [id number] ? 55 cm Suffered with an acute CHF exacerbation during admission, secondary to PRBC administration. Cardiology followed the patient while admitted. Recommend outpatient follow-up with Cardiology, continue metoprolol, spironolactone, statin. Restart aspirin outpatient setting. Status at Discharge Cognitive/behavioral status at discharge: Alert and oriented to person place time and situation Functional status at discharge: independent ambulation Overall status at discharge: patient is back to baseline Time Attestation Total time managing care of this patient today: 45 mintues. Discharge Coordination Time (in mins): 15 Quality: Safe Use of Opioids Does Pt have an Active Cancer Diagnosis on the Problem List?: No Quality: Stroke Does the patient have a stroke diagnosis?: No Physical Exam Exam: Exam: General: A&O x3, oriented to time place person and situation, comfortable, no pain Cardiac: S1, S2 auscultated with no S3/4, no MRG. Well perfused. Respiratory: Normal breath sounds auscultated throughout all lung zones, without wheezing, rales. Normal rate. GI/ : No abdominal pain on palpation, no masses or distentions. MSK: Normal ambulation without pain at bony prominences or musculature Neurological: Normal neurological examination on overview, without obvious CN II-XII abnormalities. Vital Signs: Vital Signs: Last Vital Signs Temp 97.0 F 07/06/25 09:54 Pulse 66 07/06/25 09:54 Resp 18 07/06/25 09:54 BP 114/58 L 07/06/25 09:54 Pulse Ox 97 07/06/25 09:54 O2 Del Method Room Air 07/06/25 09:54 BMI result Body Mass Index 23.7 DS: Data Data Completed and Pending Pending studies at discharge: Pending at discharge 07/04/25 08:53 Surgical [PTH] Routine Labs on day of discharge: Laboratory Results - last 24 hr 07/04/25 07/06/25 06:10 05:46 Sodium 136 Potassium 3.5 Chloride 102 Carbon Dioxide 26 Anion Gap 12 BUN 18 H Creatinine 1.04 Estim Creat Clear Calc 53.7 Estimated GFR > 60 Random Glucose 93 Calcium 8.9 A.phagocytophil DNA PCR NOT DETECTED Babesia microti DNA PCR NOT DETECTED Borrelia sp DNA (PCR) NOT DETECTED Borrelia miyamotoi (PCR) NOT DETECTED E.chaffeensis DNA (PCR) NOT DETECTED Tick-borne Disease PCR SEE NOTE Discharge Plan Discharge Anticipated Discharge Date/Time: 07/06/25 09:11 Patient Disposition: Home, Self-Care Discharge Diagnosis: Acute symptomatic anemia secondary to upper and lower GI bleeding and mild CHF exacerbation Referrals: Physician,None [Primary Care Provider, Medical] - 1 Week Discharge Medications: New cyanocobalamin (vitamin B-12) [Vitamin B-12] 1,000 mcg Tablet 1,000 mcg PO DAILY 30 Days Qty: 30 0RF omeprazole 40 mg Capsule,Delayed Release(Dr/Ec) 40 mg PO BID@0630,1630 30 Days Qty: 40 0RF Rx Instructions: Take twice a day for 10 days, then once a day spironolactone 25 mg Tablet 12.5 mg PO DAILY 30 Days Qty: 15 0RF Protocol: Hold for SBP< HOLD for SBP < : 90 ferrous sulfate 300 mg (60 mg iron)/5 mL Liquid 300 mg PO DAILY 30 Days Qty: 150 0RF folic acid 1 mg Tablet 1 mg PO DAILY 30 Days Qty: 30 0RF thiamine mononitrate (vit B1) 100 mg Tablet 100 mg PO DAILY 30 Days Qty: 30 0RF Continued atorvastatin 80 mg tablet 80 mg PO BEDTIME metoprolol succinate 25 mg tablet extended release 24 hr 25 mg PO DAILY Discharge Orders: Discharge Order (Routine); Ordered 07/06/25 Ordered By: Travis Thao Diet: Advance to usual diet Activity on Discharge: As tolerated Stand Alone Forms: Patient Portal Discharge page Print Language: Polish Care Plan Goals: Follow-up PCP within 1 week Cardiology appointment within 1 week GI appointment outpatient - will need repeat colonoscopy and EGD within 1-3 years as per GI recommendations Continue all medications until discontinuation Health Concerns: Upper GI bleed and lower GI bleed Congestive heart failure exacerbation secondary to TACO Plan of Treatment: As above Assessment: Alert and oriented to person place and time. Clinically stable Patient Instructions: Gastrointestinal Bleeding (DC) Discharge Date/Time: 07/06/25 10:21
--- NOTE | 2025-08-17 07:24 | P.CDIM_ITS ---
PROVIDER RESPONSE TEXT: To clarify, the appropriate diagnosis supported by the clinical indicators: Acute blood loss anemia: possible QUERY TEXT: PHYSICIAN'S DOCUMENTATION REQUEST Date of Query: 07/25/2025 11:13 AM EDT Patient Name: Tristian Lisa Admit Date: 07/03/2025 Dear Travis Thao MD, RETROSPECTIVE QUERY A review of the medical record indicates additional documentation may be needed. Please review below and update the documentation accordingly. Clinical Indicators: ED 07/02/2025 - Patient with 2-3 months dizziness, weakness, severe fatigue, unable to ambulate. H/H 4.8/17.8 *L Transfused 3 units PRBC H&P 07/03/2025 - Iron deficiency anemia possibly from UGI or LGI. GI 07/03/2025 - Evidence of severe anemia. Patient noticed increasing Shortness of breath at rest and while sleeping. Based on the above, could you clarify which of the following is the most likely type of anemia you are evaluating, treating, and/or monitoring? Acute blood loss anemia possible, cannot rule out, suspected etc. Iron deficiency anemia secondary to acute on chronic blood loss possible, probable, suspected, cannot rule out etc. Iron deficiency anemia due to chronic blood loss Other (explain) Clinically unable to determine (explain) Thank you, Kath Gonzalez, CCS, CDIS Use of terms such as suspected, likely, concern for, or probable (associated with a specific diagnosis that is being evaluated, monitored, or treated as if it exists) are acceptable and can be coded in the inpatient setting, when documented at the time of discharge. Please use your independent medical judgment in providing your response. THIS QUERY IS PART OF THE PERMANENT MEDICAL RECORD
== END 2025-07-06 10:21 | disposition home or self-care (01) | DRG 377 ==
LOC: HO.ED 22:06 → HO.EDOVER 22:53 → HO.S3 07-03 07:53
PROVIDERS: Internal Medicine; Internal Medicine Gastroenterology; Nurse Practitioner Family; Physician Assistant; Admitting Provider Internal Medicine; Emergency Provider Emergency Medicine; Visit Provider Hospitalist
PROC: 0DB98ZX Excision of Duodenum, Via Natural or Artificial Opening Endoscopic, Diagnostic (ICD-10-PCS; principal; 2025-07-04 08:30)
DX: K55.21 Angiodysplasia of colon with hemorrhage (principal); I50.23 Acute on chronic systolic (congestive) heart failure; I42.9 Cardiomyopathy, unspecified; E51.9 Thiamine deficiency, unspecified; D62 Acute posthemorrhagic anemia; E78.5 Hyperlipidemia, unspecified; K25.4 Chronic or unspecified gastric ulcer with hemorrhage; K29.81 Duodenitis with bleeding; K57.31 Diverticulosis of large intestine without perforation or abscess with bleeding; F10.10 Alcohol abuse, uncomplicated; I25.10 Atherosclerotic heart disease of native coronary artery without angina pectoris; K63.5 Polyp of colon; K64.9 Unspecified hemorrhoids; I11.0 Hypertensive heart disease with heart failure; E53.8 Deficiency of other specified B group vitamins; I34.0 Nonrheumatic mitral (valve) insufficiency; F17.210 Nicotine dependence, cigarettes, uncomplicated; Z71.6 Tobacco abuse counseling; W57.XXXA Bitten or stung by nonvenomous insect and other nonvenomous arthropods, initial encounter; Z95.810 Presence of automatic (implantable) cardiac defibrillator; Z91.190 Patient's noncompliance with other medical treatment and regimen due to financial hardship; Z79.899 Other long term (current) drug therapy
CPT/HCPCS: 36415; 71045; 74177; 80048; 80053; 82040; 82272; 82607; 82728; 82746; 83010; 83540; 83615; 83735; 83880; 84484; 84550; 85025; 85027; 85045; 85610; 86850; 86900; 86901; 86923; 87468; 87469; 87478; 87484; 87798; 88305; 88313; 88342; 93005; 93306; 99285; C1889; J1808; J1938; J2003; J2371; J2470; J2704; J3411; J3420; P9016; Q9957; Q9967; S9485

== ENCOUNTER → 2025-07-02 22:34 | Outpatient (BNV) | payer SELFPAY | PROVIDERS: Admitting Provider Internal Medicine; Emergency Provider Emergency Medicine; Visit Provider Radiology Diagnostic Radiology | DX: R06.02 Shortness of breath (principal) | CPT/HCPCS: 71045 ==

== ENCOUNTER 2025-07-02 22:43 | Outpatient (BNV) | payer SELFPAY | END 2025-07-03 12:00 | PROVIDERS: Admitting Provider Internal Medicine; Emergency Provider Emergency Medicine; Visit Provider Internal Medicine Cardiovascular Disease | DX: I34.0 Nonrheumatic mitral (valve) insufficiency (principal); I36.1 Nonrheumatic tricuspid (valve) insufficiency; I51.7 Cardiomegaly | CPT/HCPCS: 93306 ==

== ENCOUNTER 2025-07-02 22:43 | Outpatient (BNV) | payer SELFPAY | END 2025-07-03 00:40 | PROVIDERS: Admitting Provider Internal Medicine; Emergency Provider Emergency Medicine; Visit Provider Radiology Diagnostic Radiology | DX: D64.9 Anemia, unspecified (principal) | CPT/HCPCS: 74177 ==

== ENCOUNTER → 2025-07-02 22:43 | Outpatient (BNV) | payer SELFPAY | PROVIDERS: Admitting Provider Internal Medicine; Emergency Provider Emergency Medicine; Visit Provider Internal Medicine Gastroenterology | DX: D64.9 Anemia, unspecified (principal) | CPT/HCPCS: 99232 ==

== ENCOUNTER → 2025-07-02 22:43 | Outpatient (BNV) | payer SELFPAY | PROVIDERS: Admitting Provider Internal Medicine; Emergency Provider Emergency Medicine; Visit Provider Internal Medicine | DX: D50.9 Iron deficiency anemia, unspecified (principal); D51.9 Vitamin B12 deficiency anemia, unspecified | CPT/HCPCS: 99222 ==

== ENCOUNTER → 2025-07-02 22:43 | Outpatient (BNV) | payer SELFPAY | PROVIDERS: Admitting Provider Internal Medicine; Emergency Provider Emergency Medicine; Visit Provider Nurse Practitioner Family | DX: I42.9 Cardiomyopathy, unspecified (principal); I50.22 Chronic systolic (congestive) heart failure; I34.0 Nonrheumatic mitral (valve) insufficiency; Z95.810 Presence of automatic (implantable) cardiac defibrillator; D64.9 Anemia, unspecified; F10.90 Alcohol use, unspecified, uncomplicated | CPT/HCPCS: 99223; 99232; 99239 ==

== ENCOUNTER → 2025-07-02 22:43 | Outpatient (BNV) | payer SELFPAY | PROVIDERS: Admitting Provider Internal Medicine; Emergency Provider Emergency Medicine; Visit Provider Nurse Practitioner Psychiatric/Mental Health | DX: F10.90 Alcohol use, unspecified, uncomplicated (principal) | CPT/HCPCS: 99221 ==

== ENCOUNTER → 2025-07-02 22:43 | Outpatient (BNV) | payer SELFPAY | PROVIDERS: Admitting Provider Internal Medicine; Emergency Provider Emergency Medicine; Visit Provider Internal Medicine Cardiovascular Disease | DX: D64.9 Anemia, unspecified (principal); Z95.810 Presence of automatic (implantable) cardiac defibrillator; I25.10 Atherosclerotic heart disease of native coronary artery without angina pectoris; I42.9 Cardiomyopathy, unspecified | CPT/HCPCS: 93010; 99222 ==

== ENCOUNTER 2025-09-21 15:37 | Emergency (ER) | payer BC, SELFPAY ==
--- NOTE | ~2025-09-21 | XR_ITS ---
CLINICAL HISTORY: Weakness 1 view chest x-ray Comparison: CR - XR CHEST 1V - 07/02/25 23:34 EDT Findings: No consolidation or effusion. Normal size heart. Left anterior single lead AICD; right ventricle. No acute fracture. Prior sternotomy. IMPRESSION: 1. Left anterior single lead AICD in right ventricle. 2. Prior sternotomy. 3. No acute cardiopulmonary findings. This document has been electronically signed by: Sam Jones MD on 09/21/2025 17:27:38
--- NOTE | ~2025-09-21 | CT_ITS ---
EXAMINATION: CT ANGIOGRAM HEAD AND NECK CLINICAL INFORMATION: Right-sided deficit and weakness. Suspect stroke. 70-year-old male. Negative noncontrast head CT. COMPARISON: 09/22/2020 CTA head and neck. 09/24/2020 MRI brain. TECHNIQUE: Test bolus sequences and head and neck intravenous bolus administration 70 mL of Omnipaque 350. Helical imaging was performed in the axial plane from the aortic arch to the skull vertex. The data was processed at the sterile processing technologist's workstation for generation of MIP sequences. Angled MIPs and volume rendered reformatted images were also generated at an offline 3D workstation. Stenoses are assessed in accordance with NASCET criteria unless otherwise indicated. This CT examination was performed using dose optimization techniques as appropriate, variously including the following: *Automated exposure control *Adjustment of mA and/or kV according to patient size (this includes techniques or standardized protocols for targeted exams where dose is matched to indication/reason for exam; i.e. extremities or head) *Use of iterative reconstruction technique FINDINGS: NECK CTA: -AORTIC ARCH: Not aneurysmal. Ascending aorta mildly ectatic. Moderate soft and calcific atheromatous plaque. Three-vessel branching pattern. -GREAT VESSEL ORIGINS: Moderate calcific atheromatous plaque at the great vessel origins without evidence of flow-limiting stenosis. -RIGHT COMMON CAROTID ARTERY: Proximally tortuous. Otherwise normal in course and caliber to the level of the bifurcation. -CERVICAL RIGHT INTERNAL CAROTID ARTERY: Calcific and soft atheromatous plaque contribute to an estimated 50% stenosis of the proximal ICA at the level of the carotid bulb. Vessel is otherwise normal in caliber but tortuous into the skull base. -LEFT COMMON CAROTID ARTERY: Normal in course and caliber to the level of the bifurcation. -CERVICAL LEFT INTERNAL CAROTID ARTERY: Calcific and soft atheromatous plaque contribute to an estimated 40% stenosis of the proximal ICA at the level of the carotid bulb. Vessel is otherwise normal in caliber but tortuous into the skull base. -CERVICAL RIGHT VERTEBRAL ARTERY: Codominant. There is a moderate stenosis of the origin due to calcific plaque. Otherwise normal in course and caliber into the skull base. -CERVICAL LEFT VERTEBRAL ARTERY: Codominant. There is a mild stenosis of the origin due to calcific plaque. Otherwise normal in course and caliber into the skull base. OTHER, SOFT TISSUES: -No lymphadenopathy or mass. No abnormal fluid collection or soft tissue swelling. -The thyroid gland is diminutive. -Imaged superior mediastinal structures normal. -Imaged lung apices appear clear. -There has been a prior median sternotomy. There are degenerative changes of the cervical spine, most significant at C6-7 where there is severe disc degeneration. CTA OF THE BRAIN: -INTRACRANIAL INTERNAL CAROTID ARTERIES: Calcific atherosclerotic disease of the intracranial internal carotid arteries without occlusion or flow-limiting stenosis. Estimated stenosis bilaterally is 40% maximally. The ophthalmic artery origins are patent bilaterally. -RIGHT ANTERIOR CEREBRAL ARTERY: The A1 segment is diminutive. The A2 segment is predominantly supplied by the left A1 segment. Normal arborization of the distal segments. -LEFT ANTERIOR CEREBRAL ARTERY: Normal A1 segment. Normal arborization of the distal segments. -ANTERIOR COMMUNICATING ARTERY: There is a mild junctional dilatation of the left aspect (series 6, image 266). There is no aneurysm. -RIGHT MIDDLE CEREBRAL ARTERY: Normal M1 segment of the MCA without focal stenosis or occlusion. Normal arborization of the distal segments. -LEFT MIDDLE CEREBRAL ARTERY: Normal M1 segment of the MCA without focal stenosis or occlusion. Normal arborization of the distal segments. -RIGHT VERTEBRAL ARTERY V4: Normal in course and caliber. Normal PICA branch. -LEFT VERTEBRAL ARTERY V4: Normal in course and caliber. Normal PICA branch. -BASILAR ARTERY: Normal without focal stenosis or occlusion. Normal appearance of the proximal superior cerebellar arteries. Normal basilar tip. -RIGHT POSTERIOR CEREBRAL ARTERY: The P1 segment is diminutive. origin of the [employer]IOR [employer] CONSULTANT with robust opacification of the posterior communicating artery. Normal opacification of the distal S[employer]IOR [employer]IN[employer] CONSULTANT segments. -LEFT POSTERIOR CEREBRAL ARTERY: Normal P1 segment. Normal opacification of the distal SENIOR [employer] CONSULTANT segments. -POSTERIOR COMMUNICATING ARTERIES: The right as above. The left is not well seen. Normal opacification of the superior sagittal, straight, transverse, and sigmoid sinuses. No venous thrombosis. No space-occupying hemorrhage or definite evolving infarct. CT/CT angio head neck STROKE IMPRESSION: CTA NECK: 1. There is an approximate 50% RIGHT proximal ICA stenosis due to mixed calcific and soft plaque. 2. There is an approximate 40% LEFT proximal ICA stenosis due to mixed calcific and soft plaque. 3. There is a moderate stenosis of the RIGHT vertebral origin due to calcific plaque. 4. There is a mild stenosis of the LEFT vertebral artery origin due to calcific plaque. 5. There is no occlusion or dissection of the major cervical arterial vasculature. 6. The ascending aorta is mildly ectatic at 4.0 cm in diameter. CTA HEAD: 1. There is no evidence of high-grade stenosis, occlusion, aneurysm, dissection of the major intracranial arterial vasculature. 2. There is moderate to heavy calcification of the carotid siphons bilaterally, with maximal stenosis of approximately 40% bilaterally. 3. There is a persistent origin of the right [employer]INICAL CONSULTANT. 4. Major cortical and dural venous sinuses are patent. 5. No space-occupying hemorrhage or definite evolving infarct. Electronically signed by: Clemente English MD 09/21/2025 04:59 PM [facility]
--- NOTE | ~2025-09-21 | CT_ITS ---
EXAMINATION: CT HEAD WITHOUT CONTRAST (STROKE PROTOCOL) CLINICAL INFORMATION: Stroke protocol. Right-sided deficit, dizziness. COMPARISON: 09/22/2020. MR brain 09/24/2020. CT maxillofacial 02/25/2025. TECHNIQUE: Contiguous axial imaging was performed from the skull base to vertex without intravenous administration of contrast. This CT examination was performed using dose optimization techniques as appropriate, variously including the following: *Automated exposure control *Adjustment of mA and/or kV according to patient size (this includes techniques or standardized protocols for targeted exams where dose is matched to indication/reason for exam; i.e. extremities or head) *Use of iterative reconstruction technique FINDINGS: There is no evidence of intracranial hemorrhage or extra-axial fluid collection. There is no mass effect, or edema. No CT evidence of acute territorial infarct. Ventricles, sulci, and cisterns are normal in size and configuration for patient age. No hydrocephalus. No midline shift. Negative hyperdense MCA sign. Negative insular ribbon sign. Patchy periventricular and deep white matter hypoattenuation is consistent with moderate small vessel ischemic changes. Normal pituitary. Atheromatous calcification of the bilateral carotid siphons. Globes and orbital contents image normally. No extracranial soft tissue abnormalities. The paranasal sinuses, mastoid air cells, and tympanic cavities are normally aerated. No suspicious bony abnormalities. There are no acute fractures evident. CT/CT head for STROKE IMPRESSION: No acute intracranial abnormality. No CT evidence of acute territorial infarct. This critical result was discussed with Camila Banks at 3:09 PM on 09/21/2025. It was ascertained that the content and urgency of the report was understood at the time of direct communication. Electronically signed by: Clemente English MD 09/21/2025 04:13 PM [facility]
--- NOTE | 2025-09-21 15:40 | ECG_ITS ---
Test Reason : cp Blood Pressure : */* mmHG Vent. Rate : 68 BPM Atrial Rate : 68 BPM P-R Int : 166 ms QRS Dur : 124 ms QT Int : 422 ms P-R-T Axes : 51 10 -2 degrees QTcB Int : 448 ms Normal sinus rhythm Possible Left atrial enlargement Left ventricular hypertrophy with QRS widening ( R in aVL , Sokolow-Le , Tye product ) Inferior infarct (cited on or before 17-Feb-2012) Abnormal ECG When compared with ECG of 02-Jul-2025 20:13, Inverted T waves have replaced nonspecific T wave abnormality in Inferior leads Referred By: Camila Banks Electronically Signed By: Sigifredo Avina
[2025-09-21 15:50] VITALS: BP 194/86; PULSE 68; RESP 18; TEMP 36.6; O2SAT 97; BMI 28.3
--- NOTE | 2025-09-21 15:52 | ED.GENADULT ---
HPI - General Adult General Chief complaint: Stroke Stated complaint: CP, weakness Time Seen by Provider: 09/21/25 15:59 Source: patient Mode of arrival: ambulatory Limitations: no limitations History of Present Illness ED Provider: Dr. Grayson HPI narrative: 70-year-old male history of AICD, CAD, cardiomyopathy, mitral valve regurgitation, CHF, hypertension hyperlipidemia presented hospital today for evaluation of sudden onset of dizziness and weakness. Patient stated that he has difficulty walking due to his dizziness. He describes vertiginous symptoms. Worsened with movement. Denies any dizziness when he is resting. He states he has history of stroke. He is supposed to be on blood thinner for unknown reason however he has not been taking it. Due to insurance issues. He stated that he has difficulty formulating words and speech at this time. He feels more confused than normal. Provided a friend stated that patient is complaining he was slumping to the right. With the right-sided weakness. He stated that he is normally weak on his right lower extremities due to right hip issues. Related Data Home Medications ?Medication ?Instructions ?Recorded ?Confirmed atorvastatin 80 mg tablet 80 mg PO BEDTIME 02/25/25 07/03/25 metoprolol succinate 25 mg 25 mg PO DAILY 02/25/25 07/03/25 tablet,extended release 24 hr Previous Rx's ?Medication ?Instructions ?Recorded cyanocobalamin (vitamin B-12) 1,000 mcg PO DAILY 30 days #30 tabs 07/06/25 1,000 mcg tablet (Vitamin B-12) ferrous sulfate 300 mg (60 mg 300 mg (5 mL) PO DAILY 30 days 07/06/25 iron)/5 mL oral liquid #150 mL folic acid 1 mg tablet 1 mg PO DAILY 30 days #30 tabs 07/06/25 omeprazole 40 mg capsule,delayed 40 mg PO BID@0630,1630 30 days #40 07/06/25 release caps spironolactone 25 mg tablet 12.5 mg PO DAILY 30 days #15 tabs 07/06/25 thiamine mononitrate (vit B1) 100 100 mg PO DAILY 30 days #30 tabs 07/06/25 mg tablet meclizine 25 mg tablet 25 mg PO TID PRN dizziness #20 tabs 09/21/25 Allergies Allergy/AdvReac Type Severity Reaction Status Date / Time lisinopril Allergy Severe Angioedema Verified 09/21/25 15:57 Review of Systems Review of Systems: Pertinent review of systems as mentioned in HPI. All other system otherwise negative. [facility] Past Medical History [facility] Narrative: Medical history as mentioned in [facility] Medical History (Updated 09/21/25 @ 19:44 by Rachele Grayson DO) Mitral valve regurgitation Tobacco dependence Alcohol use disorder Gout Cardiac defibrillator in place Chronic systolic CHF (congestive heart failure) Toe erythema Left ventricular aneurysm CVA (cerebral vascular accident) Tumor High cholesterol HTN (hypertension) Surgical History (Updated 07/24/25 @ 09:10 by Kelley Ricketts) Hx of colonoscopy Social History Social History Household Members: Other Household Members Other:: sister in law Housing: House Are you a primary spiritual care coordinator to a significant other at home: No Do you presently have visiting nurse or other home services: No Alcohol intake: current Alcohol intake frequency: 3 or more drinks per day Alcohol type: hard liquor Comment: 5-6 marilia nips per week, may be underestimated Patient Tobacco Use Status: Current everyday Tobacco user Tobacco use type: Cigarette Smoked in Last 30 Days: Yes Second Hand Smoke Exposure: No Use of substances other than those prescribed or required for medical reasons: No Advance Directives: No Advance Directives Information Provided: No Do you have a plan to hurt others: No Plan service: No Current occupational status: retired Physical Exam ED Exam Exam: General: Pleasant, no distress, interacting appropriately Head: Normacephalic, atraumatic ENT: oral mucosa moist, neck supple, no tracheal deviation Cardiovascular: regular rate, regular rhythm, no murmurs, rubbing, gallops Respiratory: CTAB, no wheeze, rales, rhonchi Gastrointestinal: Soft, non distended, non tender, non guarding Extremities: No limb pain or swelling, no calf tenderness Neurological: Awake and alert, no facial droop noted, see NIH score for for stroke evaluation. Skin: Warm and dry Psychiatric: Appropriate mood and thoughts Vital Signs: Vital Signs - 24 hr 09/21/25 15:50 09/21/25 17:31 09/21/25 18:32 Temperature 98 F Pulse Rate 68 64 62 Respiratory Rate 18 12 18 Blood Pressure 194/86 H 169/85 H 174/80 H Pulse Oximetry 97 100 98 Oxygen Delivery Method Room Air Room Air 09/21/25 20:00 09/21/25 20:52 Temperature 97.4 F Pulse Rate 78 78 Respiratory Rate 16 16 Blood Pressure 169/82 H 169/82 H Pulse Oximetry 100 100 Oxygen Delivery Method Room Air Room Air BMI result Body Mass Index 28.3 NIH Stroke Scale Internal: Initial- Upon Arrival Level of Consciousness: Alert Level of Consciousness Questions: Answers both questions correctly Level of Consciousness Commands: Performs both tasks correctly Best Gaze: Normal Visual: No visual loss Facial Palsy: Normal Motor Arm (Right): No drift Motor Arm (Left): No drift Motor Leg (Right): No drift Motor Leg (Left): No drift Limb Ataxia: Absent Sensory: Normal Best Language: No aphasia Dysarthia: Normal Extinction and Inattention: No abnormality Score: 0 Course Course Course Narrative: Rapid medical examination performed in triage by Camila Banks PA-C: Patient is a 70 year old assigned male at presenting to the emergency department with dizziness - like he is spinning and right sided weakness. Patient states that he was sitting on his bed when he slumped over to his right side, sat back up and slumped over again. Patient states that he feels as though he is spinning and he cannot walk. Patient states that he has a history of stroke and is supposed to be on an anti-coagulation medication but he can't afford it so he isn't taking it. Detailed physical exam and review of systems are deferred to the unit supervisor. rn gastroenterology made aware. Medications Administered Discontinued Medications Generic Name Dose Route Start Last Admin Trade Name Freq PRN Reason Stop Dose Admin Sodium Chloride 1,000 mls @ 999 mls/hr 09/21/25 17:15 09/21/25 20:15 Ns IV 09/21/25 18:15 Infused .Q1H1M EMILIE Infusion Iohexol 100 ml 09/21/25 16:10 09/21/25 16:11 Iohexol 350 Mg/Ml 100 Ml Infus..Btl IV 09/21/25 16:11 70 ml ONCE ONE Administration Meclizine HCl 25 mg 09/21/25 17:44 09/21/25 17:48 Meclizine Hcl 25 Mg Tablet PO 09/21/25 17:45 25 mg ONCE ONE Administration Medical Decision Making Medical Decision Making MDM Narrative: 70-year-old male history of AICD, cardiomyopathy, CAD hypertension hyperlipidemia presented hospital today for evaluation of vertiginous symptoms with dizziness and weakness. Show protocol was activated by provider in triage. It was that patient was weak on the right side on evaluation. Patient stated that he was prescribed blood thinner in the past however has stopped since. He is unsure why he was on blood thinner. He stated he is not taking one for years. On my examination. Patient as any NIH of 0 CT head and CTA head and neck did not show any signs of significant stenosis or LVO. No sign of intracranial bleed. Did consider TNK for the patient. However patient has a NIH of 0. He is not eligible for TNK at this time. Patient's CBC is unremarkable. It is slight anemia at 12.6, patient's chemistries unremarkable. Patient's does have elevated ethanol level at 01:45. After of bolus IV fluid. Patient's vertiginous symptom has resolved. Patient stated that he had does not have insurance currently does not have a card for insurance. He does have [employer] Encouraged him with a called the financial counselor for follow up. Given patient's resolution of his symptoms. I have very low suspicion this is a stroke. I think this is peripheral vertigo or possible dehydration from alcohol usage Patient will be discharged home. Differential Diagnosis Differential Diagnoses: The differential diagnosis associated with the presentation includes Dizziness, dehydration, vertigo Lab Data MDM Lab Attestation statement: I reviewed the patient's lab results. 09/21/25 16:08 09/21/25 16:08 Labs: Lab Results 09/21/25 09/21/25 09/21/25 Range/Units 16:03 16:06 16:08 WBC 7.3 (4.8-10.8) X10*3/uL RBC 4.41 L (4.60-5.80) X10*6/uL Hgb 12.6 L (14.0-18.0) g/dl Hct 39.1 L (42.0-52.0) % MCV 88.7 (80.0-98.0) fL MCH 28.6 (27.0-33.0) pg MCHC 32.2 (31.0-36.0) g/dl RDW 17.9 H (11.0-16.0) % Plt Count 199 (160-400) X10*3/uL MPV 9.1 L (9.4-12.4) fL Immature Gran % (Auto) 0.4 (0.0-0.4) % Neut % (Auto) 68.1 (45-73) % Lymph % (Auto) 19.1 L (20-40) % Imperial % (Auto) 9.6 (2-11) % Eos % (Auto) 2.1 (0-4) % Baso % (Auto) 0.7 (0-2) % Lymph # (Auto) 1.4 (1.2-4.9) X10*3/uL Imperial # (Auto) 0.7 (0.1-1.2) X10*3/uL Eos # (Auto) 0.2 (0.0-0.4) X10*3/uL Baso # (Auto) 0.1 (0.0-0.2) X10*3/uL Abs Immat Gran (auto) 0.03 (0.00-0.03) X10*3/uL Absolute Neuts (auto) 4.9 (2.0-8.3) x10*3/uL Absolute Nucleated RBC 0.000 (0.0-0.012) X10*3/uL Nucleated RBC % (auto) 0.0 (0.0-0.2) /100WBC Hold Purple Top SEE NOTE PT 11.3 (11.2-13.5) SEC Whole Blood PT 12.2 (11.1-13.5) sec INR 0.9 (0.9-1.1) Whole Blood INR 1.0 (0.9-1.1) APTT 26.4 L (26.7-34.1) SEC Sodium 143 (135-145) mmol/L Potassium 3.8 (3.3-5.1) mmol/L Chloride 107 (96-108) mmol/L Carbon Dioxide 26 (22-29) mmol/L Anion Gap 14 (12-20) BUN 9 (9-16) mg/dL Creatinine 0.99 (0.5-1.4) mg/dL Estim Creat Clear Calc 62.3 Estimated GFR > 60 POC Glucose 90 (60-115) mg/dL Random Glucose 71 (60-115) mg/dL Calcium 9.5 D (8.4-10.2) mg/dL Troponin I High Sens 23.9 (<3.5-35.0) ng/L Triglycerides 266 H (<150) mg/dL Cholesterol 224 H (<200) mg/dL LDL Cholesterol, Calc 119 H (<100) mg/dL HDL Cholesterol 52 (>40) mg/dL Ethyl Alcohol 145 mg/dL Independent Interpretation I performed an independent interpretation of an: CT Scan Radiology Impression Discussion of test interpretation with radiology: I have reviewed the radiologist's reading. Critical Care Time Critical Care Time Critical Care Time: Yes Total Critical Care Time: 36 Attestation: Time is exclusive of separately billable procedures. Time includes: direct patient care, patient reassessment, coordination of patient care, interpretation of data (laboratory data, pulse oximetry, arterial blood gases and chest xrays), review of patient's medical records, medical consultation and documentation of patient care. Procedures excluded from critical care time: central intravenous line placement and electrocardiography. Discharge Plan Discharge Clinical Impression: Vertigo Patient Disposition: Home, Self-Care Instructions: Vertigo (ED) Prescriptions: New meclizine 25 mg tablet 25 mg PO TID PRN (Reason: dizziness) Qty: 20 0RF No Action atorvastatin 80 mg tablet 80 mg PO BEDTIME metoprolol succinate 25 mg tablet extended release 24 hr 25 mg PO DAILY cyanocobalamin (vitamin B-12) [Vitamin B-12] 1,000 mcg Tablet 1,000 mcg PO DAILY 30 Days Qty: 30 0RF omeprazole 40 mg Capsule,Delayed Release(Dr/Ec) 40 mg PO BID@0630,1630 30 Days Qty: 40 0RF Rx Instructions: Take twice a day for 10 days, then once a day spironolactone 25 mg Tablet 12.5 mg PO DAILY 30 Days Qty: 15 0RF Protocol: Hold for SBP< HOLD for SBP < : 90 ferrous sulfate 300 mg (60 mg iron)/5 mL Liquid 300 mg PO DAILY 30 Days Qty: 150 0RF folic acid 1 mg Tablet 1 mg PO DAILY 30 Days Qty: 30 0RF thiamine mononitrate (vit B1) 100 mg Tablet 100 mg PO DAILY 30 Days Qty: 30 0RF Interventions: ED Discharge Assessment Last Done: 09/21/25 20:52 Discharge Date/Time: 09/21/25 20:54 Print Language: Yoruba
[2025-09-21] MEDS: iohexoL 350 MG/ML 100 ML INFUS..BTL IV (16:11)
[2025-09-21 16:12] LABS: MANUAL DIFF FLAG NO
[2025-09-21 16:13] LABS: Glucose, Whole Blood 90 mg/dL (60-115)
[2025-09-21 16:15] LABS: Prothrombin Time Whole Bld POC 12.2 sec (11.1-13.5); ~PT, ~INR - Anti Coag Clinic 1.0 (0.9-1.1)
[2025-09-21 16:18] LABS: Hematocrit 39.1 % (42.0-52.0); Hemoglobin 12.6 g/dl (14.0-18.0); Imm Gran Abs Auto 0.03 X10*3/uL (0.00-0.03); Imm Gran Pct Auto 0.4 % (0.0-0.4); Lymphocytes Absolute Auto 1.4 X10*3/uL (1.2-4.9); Mean Corpuscular HGB Conc 32.2 g/dl (31.0-36.0); Mean Corpuscular Hemoglobin 28.6 pg (27.0-33.0); Mean Corpuscular Volume 88.7 fL (80.0-98.0); NRBC Abs Auto 0.000 X10*3/uL (0.0-0.012); NRBC Pct Auto 0.0 /100WBC (0.0-0.2); Platelet Count 199 X10*3/uL (160-400); Red Blood Count 4.41 X10*6/uL (4.60-5.80); White Blood Count 7.3 X10*3/uL (4.8-10.8)
--- NOTE | 2025-09-21 16:20 | PC.NURSE ---
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
[2025-09-21 16:23] LABS: INTERNATIONAL NORM RATIO 0.9 (0.9-1.1); Prothrombin Time 11.3 SEC (11.2-13.5)
[2025-09-21 16:26] LABS: Partial Thromboplastin Time 26.4 SEC (26.7-34.1)
--- NOTE | 2025-09-21 16:27 | MHC.EDTECH ---
Initial EKG performed prior to Pt being triaged while he was in the WR by the triage tech. RN and Provider aware of the duplicate order. This tech was told by Provider Kenan that the second order can be cancelled.
[2025-09-21 16:38] LABS: Anion Gap 14 (12-20); Blood Urea Nitrogen 9 mg/dL (9-16); Calcium 9.5 mg/dL (8.4-10.2); Carbon Dioxide 26 mmol/L (22-29); Chloride 107 mmol/L (96-108); Cholesterol 224 mg/dL (<200); Creatinine Clr Calc Pharmacy 62.3; Estimated Glomerular Filt Rate > 60; HDL Cholesterol 52 mg/dL (>40); Potassium 3.8 mmol/L (3.3-5.1); Sodium 143 mmol/L (135-145); Stroke Lab Use COMPLETE; Triglycerides 266 mg/dL (<150)
[2025-09-21 16:46] LABS: Troponin-I High Sensitivity 23.9 ng/L (<3.5-35.0)
[2025-09-21 17:31] VITALS: BP 169/85; PULSE 64; RESP 12; O2SAT 100
[2025-09-21 18:32] VITALS: BP 174/80; PULSE 62; RESP 18; O2SAT 98
[2025-09-21 20:00] VITALS: BP 169/82; PULSE 78; RESP 16; O2SAT 100
[2025-09-21 20:52] VITALS: BP 169/82; PULSE 78; RESP 16; TEMP 36.3; O2SAT 100
== END 2025-09-21 20:54 | disposition home or self-care (01) ==
PROVIDERS: Physician Assistant Medical; Emergency Provider Student in an Organized Health Care Education/Training Program
DX: R42 Dizziness and giddiness (principal); R53.1 Weakness; I11.0 Hypertensive heart disease with heart failure; I50.9 Heart failure, unspecified; E78.5 Hyperlipidemia, unspecified; I25.10 Atherosclerotic heart disease of native coronary artery without angina pectoris; Z86.73 Personal history of transient ischemic attack (TIA), and cerebral infarction without residual deficits; Z95.810 Presence of automatic (implantable) cardiac defibrillator; Z79.899 Other long term (current) drug therapy
CPT/HCPCS: 36415; 70450; 70496; 70498; 71045; 80048; 80061; 80307; 82947; 84484; 85025; 85610; 85730; 93005; 96360; 96361; 99284; 99285; Q9967

== ENCOUNTER → 2025-09-21 15:40 | Outpatient (BNV) | payer BC, SELFPAY | PROVIDERS: Emergency Provider Student in an Organized Health Care Education/Training Program; Visit Provider Internal Medicine Cardiovascular Disease | DX: I51.7 Cardiomegaly (principal); I25.2 Old myocardial infarction | CPT/HCPCS: 93010 ==

== ENCOUNTER → 2025-09-21 15:53 | Outpatient (BNV) | payer SELFPAY | PROVIDERS: Emergency Provider Student in an Organized Health Care Education/Training Program; Visit Provider Radiology Diagnostic Radiology | DX: I63.9 Cerebral infarction, unspecified (principal); G81.91 Hemiplegia, unspecified affecting right dominant side; I65.23 Occlusion and stenosis of bilateral carotid arteries; R42 Dizziness and giddiness; R53.1 Weakness; Z95.810 Presence of automatic (implantable) cardiac defibrillator | CPT/HCPCS: 70450; 70496; 70498; 71045 ==